=== PATIENT | female | born 1940 | race Caucasian/White ===

== ENCOUNTER 2018-12-20 12:30 | Emergency (ER) | payer OTHER ==
[2018-12-20 15:46] LABS: Absolute Lymphocytes (CBC) 2.1 K/uL (0.7-4.9); Absolute Monocytes 0.4 K/uL (0.1-1.3); Absolute Neutrophil 4.3 K/uL (1.8-8.0); Basophils % 0.6 % (0-1.3); Hematocrit 47.8 % (36.0-45.0); Lymphocytes % 29.9 % (15.3-44.8); MPV 8.5 fL (7.6-11.3); RBC Red Blood Cell Count 5.23 M/uL (3.86-4.86)
--- NOTE | 2018-12-20 15:52 | RAD REPORT ---
EXAM DESCRIPTION: RAD - Foot Right 3 View - 12/20/2018 3:42 pm CLINICAL HISTORY: Right foot pain FINDINGS: No fracture or dislocation is seen Osteoporosis. No bony destructive lesion noted
[2018-12-20 16:04] LABS: Potassium 4.2 mmol/L (3.5-5.1)
--- NOTE | 2018-12-20 16:17 | EDPHYS ---
Physician Documentation [facility] Name: Lisa Shannon Age: 78 yrs Sex: Female : 1940 Arrival Date: 12/20/2018 Time: 12:32 Bed 14 Private MD: ED Physician Denys Rizo HPI: 12/20 16:05 This 78 yrs old Female presents to ER via Ambulatory with complaints of Right pm1 Great Toe Pain. 16:05 The patient presents with pain. The complaints affect the right first toe. Context: The pm1 problem was sustained at home, resulted from an unknown cause, Mechanism of Injury: Unknown the patient can fully bear weight, the patient is able to ambulate. Onset: The symptoms/episode began/occurred 3 week(s) ago. Modifying factors: The symptoms are alleviated by antibiotic treatment by prior ER visit the symptoms are aggravated by nothing. Associated signs and symptoms: Pertinent negatives: calf tenderness, fever, numbness, tingling, vomiting. Severity of symptoms: in the emergency department the symptoms have improved, markedly. The patient has experienced similar episodes in the past, a few times. Supervisor Weaving 1 week ago and told that her right foot is fine. Patient presenting today with complaints of right great toe pain. She reports that her dog recently stepped on her foot and caused an abrasion. She presented to another ER about 3 weeks ago for the same complaint and discharge home with antibiotics. Followed up with implement mechanic after completion of antibiotics and told that her foot was fine and that she did not need any further antibiotics. Patient sees pain management . Historical: - Allergies: 12:52 No Known Allergies; tw2 - Home Meds: 12:52 Metoprolol Tartrate Oral [Active]; "some other heart medicine" [Active]; tw2 12:52 "acid reflex medicine" [Active]; tw2 - PMHx: 12:52 Hypertension; tw2 12:52 acid reflux; tw2 - Immunization history:: Adult Immunizations. - Social history:: Smoking status: Patient uses tobacco products, smokes one pack cigarettes per day. - Ebola Screening: : Patient denies travel to an Ebola-affected area in the 21 days before illness onset. ROS: 16:05 MS/extremity: Positive for pain, of the right first toe, Negative for decreased range pm1 of motion, deformity. 16:05 Constitutional: Negative for fever, chills, and weight loss, Eyes: Negative for injury, pain, redness, and discharge, ENT: Negative for injury, pain, and discharge, Neck: Negative for injury, pain, and swelling, Cardiovascular: Negative for chest pain, palpitations, and edema, Respiratory: Negative for shortness of breath, cough, wheezing, and pleuritic chest pain, Abdomen/GI: Negative for abdominal pain, nausea, vomiting, diarrhea, and constipation, Back: Negative for injury and pain, : Negative for injury, bleeding, discharge, and swelling, MS/Extremity: Negative for injury and deformity, Skin: Negative for injury, rash, and discoloration, Neuro: Negative for headache, weakness, numbness, tingling, and seizure. Exam: 16:05 Constitutional: This is a well developed, well nourished patient who is awake, alert, pm1 and in no acute distress. Head/Face: Normocephalic, atraumatic. Eyes: Pupils equal round and reactive to light, extra-ocular motions intact. Lids and lashes normal. Conjunctiva and sclera are non-icteric and not injected. Cornea within normal limits. Periorbital areas with no swelling, redness, or edema. ENT: Nares patent. No nasal discharge, no septal abnormalities noted. Tympanic membranes are normal and external auditory canals are clear. Oropharynx with no redness, swelling, or masses, exudates, or evidence of obstruction, uvula midline. Mucous membranes moist. Neck: Trachea midline, no thyromegaly or masses palpated, and no cervical lymphadenopathy. Supple, full range of motion without nuchal rigidity, or vertebral point tenderness. No Meningismus. Chest/axilla: Normal chest wall appearance and motion. Nontender with no deformity. No lesions are appreciated. Cardiovascular: Regular rate and rhythm with a normal S1 and S2. No gallops, murmurs, or rubs. Normal PMI, no JVD. No pulse deficits. Respiratory: Lungs have equal breath sounds bilaterally, clear to auscultation and percussion. No rales, rhonchi or wheezes noted. No increased work of breathing, no retractions or nasal flaring. Abdomen/GI: Soft, non-tender, with normal bowel sounds. No distension or tympany. No guarding or rebound. No evidence of tenderness throughout. Back: No spinal tenderness. No costovertebral tenderness. Full range of motion. 16:05 MS/ Extremity: Pulses equal, no cyanosis. Neurovascular intact. Full, normal range of motion. 16:05 Skin: Appearance: normal except for affected area, abscess, not appreciated, mild redness to plantar aspect of right great toe. 16:05 Neuro: Orientation: is normal, Motor: is normal, moves all fours. Vital Signs: 12:51 BP 117 / 63; Pulse 79; Resp 17; Temp 97.0(TE); Pulse Ox 95% on R/A; Weight 63.05 kg tw2 (R); Height 5 ft. 5 in. (165.10 cm); Pain 6/10; 12:51 Body Mass Index 23.13 (63.05 kg, 165.10 cm) tw2 MDM: 15:12 Patient medically screened. pm1 16:08 Data reviewed: vital signs. Data interpreted: Pulse oximetry: on room air is 97 %. pm1 Interpretation: normal. Counseling: I had a detailed discussion with the patient and/or guardian regarding: the historical points, exam findings, and any diagnostic results supporting the discharge/admit diagnosis, lab results, radiology results, the need for outpatient follow up, to return to the emergency department if symptoms worsen or persist or if there are any questions or concerns that arise at home. 12/20 15:21 Order name: CBC with Diff; Complete Time: 16:09 pm1 12/20 15:21 Order name: BMP; Complete Time: 16:09 pm1 12/20 15:21 Order name: Foot Right 3 View XRAY; Complete Time: 16:09 pm1 12/20 15:21 Order name: IV Saline Lock; Complete Time: 15:43 pm1 Administered Medications: 16:07 Not Given (pt driving ): morphine 2 mg IVP once ls4 16:08 Not Given (pt driving ): Zofran 4 mg IVP once; over 2 minutes ls4 Disposition: 12/21 09:09 Co-signature as Attending Physician, Denys Rizo MD I agree with the assessment and kdr plan of care. Disposition: 12/20/18 16:15 Discharged to Home. Impression: Cellulitis of right toe. - Condition is Stable. - Discharge Instructions: Cellulitis, Adult. - Prescriptions for Augmentin 875- 125 mg Oral Tablet - take 1 tablet by ORAL route every 12 hours for 10 days; 20 tablet. Bactrim DS 800- 160 mg Oral Tablet - take 1 tablet by ORAL route every 12 hours for 10 days; 20 tablet. - Medication Reconciliation Form, Thank You Letter, Antibiotic Education, Prescription Opioid Use form. - Follow up: Emergency Department; When: As needed; Reason: Worsening of condition. Follow up: Private Physician; When: 2 - 3 days; Reason: Recheck today's complaints, Continuance of care, Re-evaluation by your physician. - Problem is new. - Symptoms have improved. Signatures: Dispatcher [employer] EDMS Denys Rizo MD MD kdr Ritesh Thompson NP MECHANICAL ENGINEERING DIRECTOR pm1 Marni Mccoy RN RN tw2 Yoli Plascencia RN RN ls4 Corrections: (The following items were deleted from the chart) 12/20 16:48 16:15 12/20/2018 16:15 Discharged to Home. Impression: Cellulitis of right toe. ls4 Condition is Stable. Forms are Medication Reconciliation Form, Thank You Letter, Antibiotic Education, Prescription Opioid Use. Follow up: Emergency Department; When: As needed; Reason: Worsening of condition. Follow up: Private Physician; When: 2 - 3 days; Reason: Recheck today's complaints, Continuance of care, Re-evaluation by your physician. Problem is new. Symptoms have improved. pm1
--- NOTE | 2018-12-20 16:17 | ER ---
Nurse's Notes [facility] Name: Lisa Shannon Age: 78 yrs Sex: Female : 1940 Arrival Date: 12/20/2018 Time: 12:32 Bed 14 Private MD: Diagnosis: Cellulitis of right toe Presentation: 12/20 12:47 Presenting complaint: Patient states: i have had an infection in my right big toe and tw2 the redness was going up my leg and i went to the er in [place] and they sent me to dr. chacon in [place] and he sent me a referral to some dr in there clinic i really dont want to go to there doctors in [place], i want to see a doctor and see what they say, they talked about having to have my toe cut off, i am still taking antibiotics. Transition of care: patient was not received from another setting of care. Onset of symptoms was December 20, 2018. Risk Assessment: Do you want to hurt yourself or someone else? Patient reports no desire to harm self or others. Initial Sepsis Screen: Does the patient meet any 2 criteria? No. Patient's initial sepsis screen is negative. Does the patient have a suspected source of infection? Yes: Skin breakdown/wound. Care prior to arrival: None. 12:47 Method Of Arrival: Ambulatory tw2 12:47 Acuity: KALEY 3 tw2 Triage Assessment: 12:50 General: Appears in no apparent distress. Behavior is calm, cooperative, appropriate tw2 for age. Pain: Complains of pain in plantar aspect of right first toe, right first toe and Right first toenail. Derm: Wound noted plantar aspect of right first toe, right first toe and Right first toenail Other: redness and swelling noted to RIGHT great toe. Historical: - Allergies: 12:52 No Known Allergies; tw2 - Home Meds: 12:52 Metoprolol Tartrate Oral [Active]; "some other heart medicine" [Active]; tw2 12:52 "acid reflex medicine" [Active]; tw2 - PMHx: 12:52 Hypertension; tw2 12:52 acid reflux; tw2 - Immunization history:: Adult Immunizations. - Social history:: Smoking status: Patient uses tobacco products, smokes one pack cigarettes per day. - Ebola Screening: : Patient denies travel to an Ebola-affected area in the 21 days before illness onset. Screenin:14 Abuse screen: Denies threats or abuse. Denies injuries from another. Nutritional ls4 screening: No deficits noted. Tuberculosis screening: No symptoms or risk factors identified. Fall Risk No fall in past 12 months (0 pts). No secondary diagnosis (0 pts). No IV (0 pts). Ambulatory Aid- None/Bed Rest/Nurse Assist (0 pts). Gait- Normal/Bed Rest/Wheelchair (0 pts) Mental Status- Oriented to own ability (0 pts). Total Urena Fall Scale indicates No Risk (0-24 pts). Assessment: 15:15 General: Appears in no apparent distress. comfortable. Pain: Complains of pain in right ls4 foot and right first toe and plantar aspect of right first toe Pain currently is 6 out of 10 on a pain scale. Cardiovascular: Capillary refill < 3 seconds Patient's skin is warm and dry. Respiratory: Airway is patent Respiratory effort is even, unlabored, Respiratory pattern is regular. Musculoskeletal: Circulation, motion, and sensation intact. Capillary refill < 3 seconds, Range of motion: intact in all extremities. Vital Signs: 12:51 BP 117 / 63; Pulse 79; Resp 17; Temp 97.0(TE); Pulse Ox 95% on R/A; Weight 63.05 kg tw2 (R); Height 5 ft. 5 in. (165.10 cm); Pain 6/10; 12:51 Body Mass Index 23.13 (63.05 kg, 165.10 cm) tw2 ED Course: 12:32 Patient arrived in ED. rg4 12:50 Triage completed. tw2 12:51 Arm band placed on. tw2 15:04 Ritesh Thompson NP is PHCP. pm1 15:04 Denys Rizo MD is Attending Physician. pm1 15:11 Yoli Plascencia, CEDRIC is Primary Nurse. ls4 15:16 Patient has correct armband on for positive identification. Bed in low position. Call ls4 light in reach. Side rails up X 1. Pulse ox on. NIBP on. Verbal reassurance given. 15:16 No provider procedures requiring assistance completed. ls4 15:43 Foot Right 3 View XRAY In Process Unspecified. EDMS 15:43 Initial lab(s) drawn, by me, sent to lab. Inserted saline lock: 20 gauge in right ls4 forearm, using aseptic technique. Blood collected. Administered Medications: 16:07 Not Given (pt driving ): morphine 2 mg IVP once ls4 16:08 Not Given (pt driving ): Zofran 4 mg IVP once; over 2 minutes ls4 Outcome: 16:15 Discharge ordered by . pm1 16:48 Patient left the ED. ls4 Signatures: Dispatcher [employer] EDMS Ritesh Thompson NP ADJUNCT PHYSICAL EDUCATION INSTRUCTOR pm1 Marni Mccoy RN RN tw2 Myrtle Mcmanus rg4 Yoli Plascencia RN RN ls4
== END 2018-12-20 16:48 | disposition home or self-care (01) ==
LOC: ER 12:30
DX: L03.031 Cellulitis of right toe (principal); I10 Essential (primary) hypertension; F17.210 Nicotine dependence, cigarettes, uncomplicated
CPT/HCPCS: 36415; 80048; 85025; 99284

== ENCOUNTER 2020-01-06 11:15 | Emergency (ER) | payer OTHER ==
[2020-01-06 13:12] LABS: Urine Bacteria <20 /HPF (<20); Urine Culture Reflex Order NOT NEEDED; Urine RBC <5 /HPF (NONE SEEN)
[2020-01-06 13:22] LABS: Urine Blood NEGATIVE (NEG); Urine Glucose 2+ (NEG); Urine Protein NEGATIVE (NEG)
--- NOTE | 2020-01-06 13:48 | RAD REPORT ---
EXAM DESCRIPTION: RAD - Lumbar Spine 3 Views - 01/06/2020 1:26 pm CLINICAL HISTORY: Back pain FINDINGS: [id number] scoliosis involves the spine. Moderate spondylosis involves mid lumbar spine consisting disc space narrowing and osteophytes. Bones are osteoporotic. No fracture or dislocation. 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
--- NOTE | 2020-01-06 14:12 | EDPHYS ---
Physician Documentation [facility] Name: Lisa Shannon Age: 79 yrs Sex: Female : 1940 Arrival Date: 01/06/2020 Time: 11:16 Bed 20 Private MD: ED Physician Denys Rizo HPI: 01/05 14:18 This 79 yrs old Female presents to ER via Ambulatory with complaints of Back snw Pain. 14:18 The patient presents with pain that is chronic, with no known mechanism of injury. The snw symptoms are located in the low back. The pain does not radiate. Associated signs and symptoms: The patient has no apparent associated signs or symptoms. The problem was sustained from a chronic condition, degenerative joint disease. Severity of symptoms: At their worst the symptoms were moderate. It is unknown whether or not the patient has had similar symptoms in the past. It is unknown whether or not the patient has recently seen a physician. Historical: - Allergies: 11:34 No Known Allergies; ss - PMHx: 11:34 acid reflux; Hypertension; ss - Immunization history:: Adult Immunizations up to date. - Social history:: Smoking status: Patient reports the use of cigarette tobacco products, smokes two packs cigarettes per day. ROS: 14:17 Constitutional: Negative for fever, chills, and weight loss, Eyes: Negative for injury, snw pain, redness, and discharge, ENT: Negative for injury, pain, and discharge, Neck: Negative for injury, pain, and swelling, Cardiovascular: Negative for chest pain, palpitations, and edema, Respiratory: Negative for shortness of breath, cough, wheezing, and pleuritic chest pain, Abdomen/GI: Negative for abdominal pain, nausea, vomiting, diarrhea, and constipation, : Negative for injury, bleeding, discharge, and swelling, MS/Extremity: Negative for injury and deformity, Skin: Negative for injury, rash, and discoloration, Neuro: Negative for headache, weakness, numbness, tingling, and seizure, Psych: Negative for depression, anxiety, suicide ideation, homicidal ideation, and hallucinations. 14:17 Back: Positive for pain at rest, pain with movement, of the lumbar area, left low back and right low back. Exam: 14:13 Constitutional: This is a well developed, well nourished patient who is awake, alert, snw and in no acute distress. Head/Face: Normocephalic, atraumatic. Eyes: Pupils equal round and reactive to light, extra-ocular motions intact. Lids and lashes normal. Conjunctiva and sclera are non-icteric and not injected. Cornea within normal limits. Periorbital areas with no swelling, redness, or edema. ENT: Nares patent. No nasal discharge, no septal abnormalities noted. Tympanic membranes are normal and external auditory canals are clear. Oropharynx with no redness, swelling, or masses, exudates, or evidence of obstruction, uvula midline. Mucous membranes moist. Neck: Trachea midline, no thyromegaly or masses palpated, and no cervical lymphadenopathy. Supple, full range of motion without nuchal rigidity, or vertebral point tenderness. No Meningismus. Chest/axilla: Normal chest wall appearance and motion. Nontender with no deformity. No lesions are appreciated. Cardiovascular: Regular rate and rhythm with a normal S1 and S2. No gallops, murmurs, or rubs. Normal PMI, no JVD. No pulse deficits. Respiratory: Lungs have equal breath sounds bilaterally, clear to auscultation and percussion. No rales, rhonchi or wheezes noted. No increased work of breathing, no retractions or nasal flaring. Abdomen/GI: Soft, non-tender, with normal bowel sounds. No distension or tympany. No guarding or rebound. No evidence of tenderness throughout. Skin: Warm, dry with normal turgor. Normal color with no rashes, no lesions, and no evidence of cellulitis. MS/ Extremity: Pulses equal, no cyanosis. Neurovascular intact. Full, normal range of motion. Neuro: Awake and alert, GCS 15, oriented to person, place, time, and situation. Cranial nerves II-XII grossly intact. Motor strength 5/5 in all extremities. Sensory grossly intact. Cerebellar exam normal. Normal gait. Psych: Awake, alert, with orientation to person, place and time. Behavior, mood, and affect are within normal limits. 14:13 Back: pain, that is moderate, ROM is painful, scoliosis that is moderate, vertebral tenderness, is not appreciated. Vital Signs: 11:32 BP 92 / 57; Pulse 93; Resp 16; Temp 98.3(TE); Pulse Ox 97% on R/A; Weight 58.97 kg; ss Height 5 ft. 0 in. (152.40 cm); Pain 9/10; 12:33 BP 92 / 57; Pulse 93; Resp 16; Temp 98.3; Pulse Ox 97% ; Weight 58.97 kg; Height 5 ft. dh4 0 in. (152.40 cm); 12:50 BP 115 / 69; Pulse 81; Resp 16 S; Pulse Ox 99% on R/A; ca1 13:59 BP 116 / 80; Pulse 76; Resp 15 S; Pulse Ox 97% on R/A; ca1 12:33 Body Mass Index 25.39 (58.97 kg, 152.40 cm) dh4 MDM: 12:38 Patient medically screened. snw 14:15 Data reviewed: vital signs, nurses notes. Data interpreted: Pulse oximetry: on room air snw is 99 %. Interpretation: normal. Counseling: I had a detailed discussion with the patient and/or guardian regarding: the historical points, exam findings, and any diagnostic results supporting the discharge/admit diagnosis, lab results, the need for outpatient follow up, for definitive care, to return to the emergency department if symptoms worsen or persist or if there are any questions or concerns that arise at home. Special discussion: Based on the history and exam findings, there is no indication for further emergent testing or inpatient evaluation. I discussed with the patient/guardian the need to see the back specialist for further evaluation of the symptoms. I discussed with the patient/guardian the need to see the primary care provider for further evaluation of the symptoms. 01/05 12:41 Order name: Urine Culture snw 01/05 12:41 Order name: Urine Microscopic Only; Complete Time: 13:17 snw 01/05 12:41 Order name: Lumbar Spine (3 Views) XRAY; Complete Time: 13:59 snw 01/05 12:52 Order name: Urine Dipstick--Ancillary (enter results); Complete Time: 13:24 em1 01/05 12:41 Order name: Urine Dipstick-Ancillary (obtain specimen); Complete Time: 12:49 snw Administered Medications: 14:09 Not Given (unavailable at pharmacy): TORadol 10 mg PO once ca1 14:14 Drug: TORadol - Ketorolac 15 mg Route: IM; Site: left deltoid; ca1 Disposition: 15:24 Co-signature as Attending Physician, Denys Rizo MD I agree with the assessment and kdr plan of care. Disposition: 01/06/20 14:11 Discharged to Home. Impression: Low back pain. - Condition is Stable. - Discharge Instructions: Back Pain, Adult, Musculoskeletal Pain, Back Injury Prevention, [id number], Cryotherapy, Heat Therapy. - Prescriptions for orphenadrine citrate 100 mg Oral Tablet Sustained Release - take 1 tablet by ORAL route 2 times per day As needed; 20 tablet. - Medication Reconciliation Form, Thank You Letter, Antibiotic Education, Prescription Opioid Use form. - Follow up: Emergency Department; When: As needed; Reason: Worsening of condition. Follow up: Private Physician; When: 2 - 3 days; Reason: Recheck today's complaints, Continuance of care, Re-evaluation by your physician. Signatures: Dispatcher [employer] EDAZ Denys Rizo MD MD [facility] Lucille Alexandre, FOWL BLOOD TESTER-C FOWL BLOOD TESTER-Csnw Shayla Walker RN RN ss Awilda Gonzáles RN RN ca1 Corrections: (The following items were deleted from the chart) 14:20 14:11 01/06/2020 14:11 Discharged to Home. Impression: Low back pain. Condition is ca1 Stable. Forms are Medication Reconciliation Form, Thank You Letter, Antibiotic Education, Prescription Opioid Use. Follow up: Emergency Department; When: As needed; Reason: Worsening of condition. Follow up: Private Physician; When: 2 - 3 days; Reason: Recheck today's complaints, Continuance of care, Re-evaluation by your physician. snw
--- NOTE | 2020-01-06 14:12 | ER ---
Nurse's Notes [facility] Name: Lisa Shannon Age: 79 yrs Sex: Female : 1940 Arrival Date: 01/06/2020 Time: 11:16 Bed 20 Private MD: Diagnosis: Low back pain Presentation: 01/05 11:32 Chief complaint: Patient states: lower back pain x 4-6 weeks. Pt reports she fell a few ss weeks ago but her back was hurting prior to that injury. Coronavirus screen: Proceed with normal triage. Patient denies a cough. Patient denies shortness of breath or difficulty breathing. Patient denies measured and/or subjective temperature greater than 100.4F prior to today's visit. Patient denies travel on a cruise ship or to a country the [facility] currently lists as an affected area. Patient denies contact with known and/or suspected case of COVID-19. Ebola Screen: Patient denies exposure to infectious person. Patient denies travel to an Ebola-affected area in the 21 days before illness onset. Initial Sepsis Screen: Does the patient meet any 2 criteria? No. Patient's initial sepsis screen is negative. Does the patient have a suspected source of infection? No. Patient's initial sepsis screen is negative. Risk Assessment: Do you want to hurt yourself or someone else? Patient reports no desire to harm self or others. Onset of symptoms is unknown. 11:32 Method Of Arrival: Ambulatory ss 11:32 Acuity: KALEY 4 ss Historical: - Allergies: 11:34 No Known Allergies; ss - PMHx: 11:34 acid reflux; Hypertension; ss - Immunization history:: Adult Immunizations up to date. - Social history:: Smoking status: Patient reports the use of cigarette tobacco products, smokes two packs cigarettes per day. Screenin:25 Abuse screen: Denies threats or abuse. Denies injuries from another. Nutritional ca1 screening: No deficits noted. Tuberculosis screening: No symptoms or risk factors identified. Fall Risk None identified. Assessment: 12:25 General: Appears in no apparent distress. uncomfortable, Behavior is calm, cooperative, ca1 appropriate for age. Pain: Complains of pain in right lower back Pain does not radiate. Pain currently is 5 out of 10 on a pain scale. Pain began 6 weeks Is continuous, Aggravated by repositioning. Neuro: Level of Consciousness is awake, alert, obeys commands, Oriented to person, place, time, situation. Cardiovascular: Heart tones S1 S2 present Capillary refill < 3 seconds Patient's skin is warm and dry. Respiratory: Airway is patent Respiratory effort is even, unlabored, Respiratory pattern is regular, symmetrical, Breath sounds are clear bilaterally. GI: Abdomen is flat, non-distended, Bowel sounds present X 4 quads. Abd is soft and non tender X 4 quads. : No signs and/or symptoms were reported regarding the genitourinary system. EENT: No signs and/or symptoms were reported regarding the EENT system. Derm: Skin is intact, is healthy with good turgor, Skin is pink, warm \T\ dry. Musculoskeletal: Circulation, motion, and sensation intact. Capillary refill < 3 seconds. 13:30 Reassessment: Patient appears in no apparent distress at this time. No changes from ca1 previously documented assessment. Patient and/or family updated on plan of care and expected duration. Pain level reassessed. Patient is alert, oriented x 3, equal unlabored respirations, skin warm/dry/pink. 14:19 Reassessment: Patient appears in no apparent distress at this time. Patient is alert, ca1 oriented x 3, equal unlabored respirations, skin warm/dry/pink. Vital Signs: 11:32 BP 92 / 57; Pulse 93; Resp 16; Temp 98.3(TE); Pulse Ox 97% on R/A; Weight 58.97 kg; ss Height 5 ft. 0 in. (152.40 cm); Pain 9/10; 12:33 BP 92 / 57; Pulse 93; Resp 16; Temp 98.3; Pulse Ox 97% ; Weight 58.97 kg; Height 5 ft. dh4 0 in. (152.40 cm); 12:50 BP 115 / 69; Pulse 81; Resp 16 S; Pulse Ox 99% on R/A; ca1 13:59 BP 116 / 80; Pulse 76; Resp 15 S; Pulse Ox 97% on R/A; ca1 12:33 Body Mass Index 25.39 (58.97 kg, 152.40 cm) dh4 ED Course: 11:16 Patient arrived in ED. as 11:34 Triage completed. ss 11:34 Arm band placed on left wrist. ss 12:25 Lucille Alexandre FNP-C [facility]. snw 12:25 Denys Rizo MD is Attending Physician. snw 12:25 Awilda Gonzáles, RN is Primary Nurse. ca1 12:25 Patient has correct armband on for positive identification. Bed in low position. Call ca1 light in reach. Side rails up X 1. Pulse ox on. NIBP on. Warm blanket given. 12:49 Urine collected: clean catch specimen, clear. ca1 13:20 Lumbar Spine (3 Views) XRAY In Process Unspecified. EDMS 14:20 No provider procedures requiring assistance completed. Patient did not have IV access ca1 during this emergency room visit. Administered Medications: 14:09 Not Given (unavailable at pharmacy): TORadol 10 mg PO once ca1 14:14 Drug: TORadol - Ketorolac 15 mg Route: IM; Site: left deltoid; ca1 Outcome: 14:11 Discharge ordered by . snw 14:20 Discharged to home ambulatory. ca1 14:20 Condition: stable 14:20 Discharge instructions given to patient, Instructed on discharge instructions, follow up and referral plans. medication usage, Demonstrated understanding of instructions, follow-up care, medications, Prescriptions given X 1. 14:20 Patient left the ED. ca1 Signatures: Dispatcher [employer] EDAR Lucille Alexandre FNP-C ANIMAL NUTRITION TEACHER-Csn Carolyn Barney Shelby, RN RN Awilda Gonzáles RN RN [facility] Dagoberto Limon 4 Corrections: (The following items were deleted from the chart) 12:51 12:50 BP 155 / 69; Pulse 81bpm; Resp 16bpm; Spontaneous; Pulse Ox 99% RA; ca1 ca1
[2020-01-06] MEDS ORDERED: KETOROLAC 30 MG/ML INJ ONE (14:18)
[2020-01-06 14:27] VITALS: TEMP 98.3
[2020-01-06 14:31] VITALS: BP 116/80; O2SAT 97
--- OUTSIDE RECORDS SUMMARY | 2020-01-06 15:00 | XMS REPORT | Continuity of Care Document ---
:1940 Author Organization [facility] t Address [address] [place] [address] Care Team Providers Name Role Phone Samira HERRERA, S Attending Clinician Juan David HERRERA Attending Clinician Rosana HERRERA A Attending Clinician Problems This patient has no known problems. Allergies, Adverse Reactions, Alerts This patient has no known allergies or adverse reactions. Medications This patient has no known medications. Procedures This patient has no known procedures. Encounters Start End Encounter Admission Attending Care Care Encounter Source Date/Time Date/Time Type Type Clinicians Facility Department ID 2020-01-06 2020-01-06 Emergency [facility] [id number] 04:15:20 05:12:00 Gil Armenta [id number] [place] [id number] [place] [id number] 2019-11-25 2019-11-25 Telephone Juan David [facility] [id number] 00:00:00 00:00:00 Eric Armenta [id number] [place] [id number] [facility] [phone] [address] 2019-11-22 2019-11-22 Telephone Juan David [facility] [id number] 00:00:00 00:00:00 Eric Armenta [id number] [place] [id number] [facility] [phone] [place] 044 [facility] 2019-11-13 2019-11-[address] [facility] [id number] 00:00:00 00:00:00 Eric Mishra [id number] [place] [id number] Professio [phone] [place] [address] [address] [facility] 2019-10-22 2019-10-22 [facility] [id number] 00:00:00 00:00:00 Malika Armenta [id number] [place] [id number] Professio [phone] [facility] 231 [facility] 2019-10-02 2019-10-02 Pre Visit [facility] [id number] 00:00:00 00:00:00 Outreach Eric Armenta [id number] [place] [id number] Profess[facility] [phone] [address] 2019-10-01 2019-10-01 Office [facility] [id number] 10:34:26 16:09:30 Visit Eric Armenta [id number] [place] [id number] [facility] [phone] [address] Results This patient has no known results.
--- OUTSIDE RECORDS SUMMARY | 2020-01-06 15:01 | XMS REPORT | Summary of Care ---
:1940 Author Organization [facility] Address [address] [place] [id number] Care Team Providers Name Role Phone MD Juan David Primary Care Provider Reason for Visit Reason Comments Refill Request Encounter Details Date Type Department Care Team Description 10/22/2019 Refill [facility] Pediatric and Hina Wayne, Refill Request Adult Primary Care- MD Armenta [address] [place] [address] [address] [facility], [address] [place] [address] [place] [address] [phone] Allergies No Known Allergiesdocumented as of this encounter (statuses as of 10/24/2019) Medications Medication Sig Dispensed Refills Start Date End Date Status proMETHazine Take 1 Tab by 20 Tab 0 03/31/2015 Ac tive (PHENERGAN) 12.5 mg mouth every 6 tabletIndications: (six) hours as Nausea needed for Nausea and Vomiting (N/V). acetaminophen-codeine Take 1 Tab by 20 Tab 0 03/31/2015 Active (TYLENOL-CODEINE #3) mouth every 4 300-30 mg tablet (four) hours as needed for Pain (scale 4-6). esomeprazole (NEXIUM) Take 1 Cap by 30 Cap 4 06/01/2015 Active 40 mg mouth daily capsuleIndications: with Gastroesophageal breakfast. reflux disease without esophagitis Liraglutide (VICTOZA inject 0.2 mL 1 Syringe 3 10/18/2016 Active 2-GÓMEZ) 0.6 mg/0.1 mL under the skin (18 mg/3 mL) daily. injectionIndications: Type 2 diabetes, uncontrolled, with neuropathy Diclofenac Sodium 1 % APPLY SMALL 5 11/15/2018 Active gel AMOUNT TWICE DAILY HYDROcodone-acetamino Take 1 tablet 0 01/17/2019 Active phen 5-325 mg tablet by mouth 3 (three) times daily. zolpidem (AMBIEN) 5 Take 1 tablet 30 tablet 5 01/25/2019 Active mg tabletIndications: by mouth at Other chronic pain bedtime as needed for Insomnia. ibuprofen 800 mg Take 1 tablet 21 tablet 0 08/31/2019 Active tabletIndications: by mouth every Acute viral syndrome 8 (eight) hours as needed for Pain (scale 4-6). ondansetron (ZOFRAN) Take 1 tablet 12 tablet 0 08/31/2019 Active 4 mg by mouth every tabletIndications: 8 (eight) Acute viral syndrome hours as needed for Nausea and Vomiting (N/V). metoprolol tartrate Take 1 tablet 90 tablet 3 10/01/2019 Active 100 mg by mouth tabletIndications: daily. Essential hypertension, Chronic congestive heart failure, unspecified heart failure type isosorbide dinitrate Take 1 tablet 90 tablet 3 10/01/2019 Active 10 mg by mouth tabletIndications: daily. Essential hypertension, Chronic congestive heart failure, unspecified heart failure type Insulin [place], Use as 450 Each 1 10/01/2019 Ac tive Disposable, (PEN directed 5 x NEEDLE) 31 gauge x daily DX: 12/13" E11.9 NdleIndications: Type 2 diabetes, uncontrolled, with neuropathy metformin ER 500 mg Take 1 tablet 60 tablet 3 10/01/2019 Active 24 hr by mouth 2 tabletIndications: (two) times Type 2 diabetes, daily. uncontrolled, with neuropathy Insulin Lispro, inject 20 18 mL 11 10/01/2019 Act [place] [facility], (HUMALOG U-100 Units under INSULIN) 100 unit/mL the skin 3 cartridgeIndications: (three) times Type 2 diabetes, daily before uncontrolled, with meals. neuropathy Insulin Glargine inject 10-15 3 Syringe 1 10/01/2019 Active (LANTUS SOLOSTAR Units under U-100 INSULIN) 100 the skin every unit/mL (3 mL) morning. injectionIndications: Type 2 diabetes, uncontrolled, with neuropathy atorvastatin 40 mg Take 1 tablet 30 tablet 3 10/01/2019 Active tabletIndications: by mouth at Dyslipidemia bedtime. mupirocin 2 % Apply to 22 g 1 10/01/2019 Activ e ointmentIndications: area(s) 3 Skin lesions (three) times daily. furosemide 20 mg Take 1 tablet 90 tablet 3 10/01/2019 Active tabletIndications: by mouth every Essential morning. hypertension, Chronic congestive heart failure, unspecified heart failure type potassium chloride 10 Take 1 tablet 60 tablet 1 10/02/2019 Active mEq CR by mouth every tabletIndications: Monday, Essential Monday and hypertension, Chronic Monday. congestive heart failure, unspecified heart failure type docusate 100 mg Take 1 capsule 60 capsule 2 10/01/2019 Active capsuleIndications: by mouth 2 Chronic constipation (two) times daily as needed for Constipation. GABAPENTIN 600 mg TAKE 1 TABLET 90 tablet 0 10/24/2019 Active tabletIndications: BY MOUTH THREE Type 2 diabetes, TIMES DAILY uncontrolled, with neuropathy gabapentin 600 mg Take 1 tablet 90 tablet 0 09/17/2019 0 Discontinued tabletIndications: by mouth 3 20 Type 2 diabetes, (three) times uncontrolled, with daily. neuropathy documented as of this encounter (statuses as of 10/24/2019) Active Problems Patient Care Coordination Note Diabetes Plan of Care My Diabetes Goals are the following: ? A1c (Measure of average glucose over t he 3 months) less than 7.0 ? Blood pressure- less than 130/80 ? Cholesterol- LDL ( bad cholesterol )- less than 100 (If I have heart disease less than 70) ? Home Glucose value goals o Before Breakfast- 80 to 126 o 2 hours after meals- 120-160 My Diabetes Care Plan includes the follo wing: ? Check and record my blood glucose at [facility] once a day, alternating between checking before breakfast and checking 2 hours after my largest meal ? Check and record blood pressure at [facility] once a week ? Exercise at least 30 minutes a day 5 d ays a week. This can be in three 10 minute intervals ? Continue to adhere to my diabetic diet (if you have questions about this, ask) ? Contact the office if: o Glucose values are not in the goal ran ge three times in one week o I have feelings my glucose is too low (feeling very faint, dizzy, or fuzzy headed or feeling very jittery, sweaty and hungry) and/or my glucose values are under 60 more than twice a week o I am so sick that I cannot eat properl y, to find out whether I need to adjust my medicines My blood pressure is over my goal more t bhardwaj three timesHypertension (High Blood Pressure) Plan of Care My Hypertension Goals are the following: ? Strive for a normal blood pressure of less than 140/90 ? Cholesterol- LDL ( Bad cholesterol )- less than 130 (if I have diabetes and heart disease goal is less than 70) ? Total Cholesterol- less than 200 ? Lose weight if overweight or obese and follow the Weight Loss Care Plan ? Stop smoking and avoid second hand smo ke My Hypertension Care Plan includes the f linning: ? Check and record blood pressure at [facility] once a week and write results on blood pressure log ? Exercise at least 30 minutes a day 5 d ays a week. This can be in three 10 minute intervals ? Maintain a healthy weight ? Follow a DASH diet (Dietary Approaches to Stop Hypertension) o Eat a diet rich in fruits, vegetables, and low fat dairy products and low in saturated and total fat o Reduce dietary sodium to below 1500mg per day o Limit alcohol to two drinks per day fo r most men and one drink per day for most women and senior contract specialist weight men ? If I am a smoker, stop smoking ? Manage stress by identifying three way s to reduce stress ? [employer] (www.[facility]/[employer]) is an online tool that will allow me to review lab results and portions of my health record, and to communicate with healthcare providers as needed. If I do not have a [employer] account, I will discuss this wi th my healthcare team Problem Noted Date Dyslipidemia 10/01/2019 Skin lesions 10/01/2019 Acute pulmonary edema 10/01/2019 Overview: -MILD Chronic congestive heart failure, unspecified heart fa ilure type 10/01/2019 Tobacco dependence 10/01/2019 Need for vaccination with 13-polyvalent pneumococcal c onjugate vaccine 10/01/2019 Need for influenza vaccination 10/01/2019 Medicare annual wellness visit, subsequent 10/01/2019 Chronic constipation 10/01/2019 Rheumatoid arthritis involving multiple sites 10/01/19 20 Generalized OA 10/01/2019 Other chronic pain 01/25/2019 Essential hypertension 02/18/2015 HLD (hyperlipidemia) 02/18/2015 Metabolic syndrome X 02/18/2015 Syncope and collapse 11/03/2014 Overview: Sitting car - trying to start Went to Er blood > 700 RLS (restless legs syndrome) 11/03/2014 AMI (acute myocardial infarction) 11/03/2014 Overview: Open heart surg 1997 Smoker 11/03/2014 Type 2 diabetes, uncontrolled, with neuropathy 015 documented as of this encounter (statuses as of 10/24/2019) Resolved Problems Problem Noted Date Resolved Date Cellulitis of toe of right foot 10/01/2019 10/01/19 20 HTN (hypertension) 11/03/2014 10/01/2019 documented as of this encounter (statuses as of 10/24/2019) Immunizations Name Administration Dates Next Due Influenza High Dose 10/01/2019 Pneumococcal 13 Conjugate, PCV13 (Prevnar 13) 10/01/2019 Pneumococcal Polysaccharide, PPSV23 (PNEUMOVAX) 03/31/2000 documented as of this encounter Social History Tobacco Use Types Packs/Day Years Used Date Current Every Day Smoker Cigarettes 0.5 60 Smokeless Tobacco: Never Used Comments: about 1 to 1/2 pack a day Alcohol Use Drinks/Week oz/Week Comments No Sex Assigned at Date Recorded Not on file Job Start Date Occupation Industry Not on file Not on file Not on file Travel History Travel Start Travel End No recent travel history available. documented as of this encounter Last Filed Vital Signs Not on filedocumented in this encounter Plan of Treatment Health Maintenance Due Date Last Done Comments EYE EXAM 1948 DTaP,Tdap,and Td Vaccines (1 - 1949 Tdap) FOOT EXAM 1956 Zoster Recombinant Vaccine 1988 (SHINGRIX) (1 of 2) Medicare Wellness Visit 2003 Osteoporosis Screening 2003 HgA1C 04/02/2020 10/01/2019, 10/18/2016, 12/16/2015, Additional history exists CREATININE (SERUM) 09/09/2020 09/09/2019, 08/31/2019, 12/04/2018, Additional history exists LDL-C 09/30/2020 10/01/2019, 12/16/2015, 02/10/2015, Additional history exists PNEUMOCOCCAL VACCINES 65+ (2 of 2 09/30/2020 10/01/2019, - PPSV23) URINE MICROALBUMIN 09/30/2020 10/01/2019, 02/10/2015, 04/15/2006 INFLUENZA VACCINE Completed 10/01/2019 documented as of this encounter Results Not on filedocumented in this encounter Visit Diagnoses Diagnosis Type 2 diabetes, uncontrolled, with neur opathy Type II or unspecified type diabetes angelica litus with neurological manifestations, uncontrolled documented in this encounter Insurance Payer Benefit Plan / Subscriber ID Effective Dates Phone Addre ss Type Group MEDICARE MEDICARE PART xxxxxxxxxxx 1996-[place] [phone] Medicare A & B [id number] [place] [id number] documented as of this encounter
--- OUTSIDE RECORDS SUMMARY | 2020-01-06 15:01 | XMS REPORT | Summary of Care ---
:1940 Author Organization [facility] Address [address] [place] [address] Care Team Providers Name Role Phone MD Juan David Primary Care Provider Reason for Visit Reason Comments Refill Request Rx Concern/Question Encounter Details Date Type Department Care Team Description 11/13/2019 Refill [facility] Family German Fall MD Refill Request; Rx Medicine - [place] [address] [facility] [address] Concern/Question [address] [facility] [address] [place] [address] [address] [place] [address] [phone] Allergies No Known Allergiesdocumented as of this encounter (statuses as of 11/17/2019) Medications Medication Sig Dispensed Refills Start End Date Status Date proMETHazine Take 1 Tab by 20 Tab 0 Act cam[place] (PHENERGAN) 12.5 mg mouth every 6 5 tabletIndications: (six) hours Nausea as needed for Nausea and Vomiting (N/V). acetaminophen-codein Take 1 Tab by 20 Tab 0 Active e (TYLENOL-CODEINE mouth every 4 5 #3) 300-30 mg tablet (four) hours as needed for Pain (scale 4-6). Liraglutide (VICTOZA inject 0.2 mL 1 Syringe 3 Active 2-GÓMEZ) 0.6 mg/0.1 mL under the 7 (18 mg/3 mL) skin daily. injectionIndications : Type 2 diabetes, uncontrolled, with neuropathy Diclofenac Sodium 1 APPLY SMALL 5 Active % gel AMOUNT TWICE 9 DAILY HYDROcodone-acetamin Take 1 tablet 0 Active ophen 5-325 mg by mouth 3 9 tablet (three) times daily. zolpidem (AMBIEN) 5 Take 1 tablet 30 tablet 5 Active mg by mouth at 9 tabletIndications: bedtime as Other chronic pain needed for Insomnia. ibuprofen 800 mg Take 1 tablet 21 tablet 0 Active tabletIndications: by mouth 0 Acute viral syndrome every 8 (eight) hours as needed for Pain (scale 4-6). ondansetron (ZOFRAN) Take 1 tablet 12 tablet 0 Active 4 mg by mouth 0 tabletIndications: every 8 Acute viral syndrome (eight) hours as needed for Nausea and Vomiting (N/V). metoprolol tartrate Take 1 tablet 90 tablet 3 Active 100 mg by mouth 0 tabletIndications: daily. Essential hypertension, Chronic congestive heart failure, unspecified heart failure type isosorbide dinitrate Take 1 tablet 90 tablet 3 Active 10 mg by mouth 0 tabletIndications: daily. Essential hypertension, Chronic congestive heart failure, unspecified heart failure type Insulin [place], Use as 450 Each 1 Act [place] Disposable, (PEN directed 5 x 0 NEEDLE) 31 gauge x daily DX: 12/13" E11.9 NdleIndications: Type 2 diabetes, uncontrolled, with neuropathy metformin ER 500 mg Take 1 tablet 60 tablet 3 Active 24 hr by mouth 2 0 tabletIndications: (two) times Type 2 diabetes, daily. uncontrolled, with neuropathy Insulin Lispro, inject 20 18 mL 11 Acti ve Human, (HUMALOG Units under 0 U-100 INSULIN) 100 the skin 3 unit/mL (three) times cartridgeIndications daily before : Type 2 diabetes, meals. uncontrolled, with neuropathy Insulin Glargine inject 10-15 3 Syringe 1 Active (LANTUS SOLOSTAR Units under 0 U-100 INSULIN) 100 the skin unit/mL (3 mL) every injectionIndications morning. : Type 2 diabetes, uncontrolled, with neuropathy atorvastatin 40 mg Take 1 tablet 30 tablet 3 Active tabletIndications: by mouth at 0 Dyslipidemia bedtime. mupirocin 2 % Apply to 22 g 1 Active ointmentIndications: area(s) 3 0 Skin lesions (three) times daily. furosemide 20 mg Take 1 tablet 90 tablet 3 Active tabletIndications: by mouth 0 Essential every hypertension, morning. Chronic congestive heart failure, unspecified heart failure type potassium chloride Take 1 tablet 60 tablet 1 Active 10 mEq CR by mouth 0 tabletIndications: every Monday, Essential Monday and hypertension, Monday. Chronic congestive heart failure, unspecified heart failure type docusate 100 mg Take 1 60 capsule 2 Act cam[place] capsuleIndications: capsule by 0 Chronic constipation mouth 2 (two) times daily as needed for Constipation. esomeprazole Take 1 30 capsule 4 Active (NEXIUM) 40 mg capsule by 0 capsuleIndications: mouth daily Gastroesophageal with reflux disease breakfast. without esophagitis gabapentin 600 mg TAKE 1 TABLET 90 tablet 0 Active tabletIndications: BY MOUTH 0 Type 2 diabetes, THREE TIMES uncontrolled, with DAILY neuropathy esomeprazole Take 1 Cap by 30 Cap 4 11/17/19 Dis continued (NEXIUM) 40 mg mouth daily 5 20 (Re order) capsuleIndications: with Gastroesophageal breakfast. reflux disease without esophagitis GABAPENTIN 600 mg TAKE 1 TABLET 90 tablet 0 11/13/19 Discontinued tabletIndications: BY MOUTH 0 20 ( Reorder) Type 2 diabetes, THREE TIMES uncontrolled, with DAILY neuropathy documented as of this encounter (statuses as of 11/17/2019) Active Problems Patient Care Coordination Note Diabetes [...] Check and record my blood glucose at [facility] once a day, alternating between checking before breakfast and checking 2 hours after my largest meal ? Check and record blood pressure at [facility] once a week ? Exercise at least [...] My Hypertension Care Plan includes the f anderson: ? 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 If I am a smoker, stop smoking ? Manage stress by identifying three way s to reduce stress ? [employer] ([email or web address]/[place]) is an online tool that will allow me to review lab results and portions of my health record, and to communicate with healthcare providers as needed. If I do not have a [employer] account, I will discuss this wi th [...] 10/01/2019 Rheumatoid arthritis involving multiple sites 10/01/19 Generalized OA 10/01/2019 Other chronic pain 01/25/2019 [...] as of this encounter (statuses as of 11/17/2019) Resolved Problems Problem Noted Date Resolved Date Cellulitis of toe of right foot 10/01/2019 10/01/19 20 HTN (hypertension) 11/03/2014 10/01/2019 documented as of this encounter (statuses as of 11/17/2019) Immunizations Name Administration Dates Next Due Influenza [...] filedocumented in this encounter Visit Diagnoses Diagnosis Gastroesophageal reflux disease without esophagitis Esophageal reflux Type 2 diabetes, uncontrolled, with neur opathy Type II or unspecified type diabetes angelica litus with neurological manifestations, uncontrolled documented in this encounter Insurance Payer Benefit Plan / Subscriber ID Effective Dates Phone Addre ss Type Group MEDICARE MEDICARE PART xxxxxxxxxxx 1996-[place] [phone] Medicare A & B 2 [id number] [place] [id number] documented as of this encounter
--- OUTSIDE RECORDS SUMMARY | 2020-01-06 15:02 | XMS REPORT | Summary of Care ---
:1940 Author Organization [facility] Address [address] [place] [address] Care Team Providers Name Role Phone MD Juan David Primary Care Provider Reason for Visit Reason Comments Rx Concern/Question Encounter Details Date Type Department Care Team Description 11/22/2019 Telephone [facility] Pediatric Eric Fall MD Rx Concern/Question and Adult Primary Care- [address] [place] [address]riber[address] [facility] [place] [address] [address] [place] [address] [phone] Allergies No Known Allergiesdocumented as of this encounter (statuses as of 11/22/2019) Medications Medication Sig Dispensed Refills Start Date [...] 5 11/15/2018 Active gel AMOUNT TWICE DAILY HYDROcodone-acetaminoph Take 1 tablet by 0 9 Active en 5-325 mg tablet mouth 3 (three) times daily. zolpidem (AMBIEN) 5 mg Take 1 tablet by 30 tablet 5 01/25/2019 Active tabletIndications: mouth at bedtime Other chronic pain as needed for Insomnia. ibuprofen 800 mg Take 1 tablet by 21 tablet 0 08/31/2019 Active tabletIndications: mouth every 8 Acute viral syndrome (eight) hours as needed for Pain (scale 4-6). ondansetron (ZOFRAN) 4 Take 1 tablet by 12 tablet 0 08/31/2019 Active mg tabletIndications: mouth every 8 Acute viral syndrome (eight) hours as needed for Nausea and Vomiting (N/V). metoprolol tartrate 100 Take 1 tablet by 90 tablet 3 0 Active mg tabletIndications: mouth daily. Essential hypertension, Chronic congestive heart failure, unspecified heart failure type isosorbide dinitrate 10 Take 1 tablet by 90 tablet 3 0 Active mg tabletIndications: mouth daily. Essential hypertension, Chronic congestive heart failure, unspecified heart failure type Insulin [place], Use as directed 450 Each 1 10/01/2019 Active Disposable, (PEN 5 x daily DX: NEEDLE) 31 gauge x E11.9 12/13" NdleIndications: Type 2 diabetes, uncontrolled, with neuropathy metformin ER 500 mg 24 Take 1 tablet by 60 tablet 3 10/01/2019 Active hr tabletIndications: mouth 2 (two) Type 2 diabetes, times daily. uncontrolled, with neuropathy Insulin Lispro, Human, inject 20 Units 18 mL 11 10/01/2019 Active (HUMALOG U-100 INSULIN) under the skin 3 100 unit/mL (three) times cartridgeIndications: daily before Type 2 diabetes, meals. uncontrolled, with neuropathy Insulin Glargine inject 10-15 3 Syringe 1 10/01/2019 Active (LANTUS SOLOSTAR U-100 Units under the INSULIN) 100 unit/mL (3 skin every mL) morning. injectionIndications: Type 2 diabetes, uncontrolled, with neuropathy atorvastatin 40 mg Take 1 tablet by 30 tablet 3 10/01/2019 Active tabletIndications: mouth at Dyslipidemia bedtime. mupirocin 2 % Apply to 22 g 1 10/01/2019 Activ e ointmentIndications: area(s) 3 Skin lesions (three) times daily. furosemide 20 mg Take 1 tablet by 90 tablet 3 10/01/2019 Active tabletIndications: mouth every Essential hypertension, morning. Chronic congestive heart failure, unspecified heart failure type potassium chloride 10 Take 1 tablet by 60 tablet 1 10/02/2019 Active mEq CR mouth every tabletIndications: Monday, Essential hypertension, Monday and Chronic congestive Monday. heart failure, unspecified heart failure type docusate 100 mg Take 1 capsule 60 capsule 2 10/01/2019 Active capsuleIndications: by mouth 2 (two) Chronic constipation times daily as needed for Constipation. esomeprazole (NEXIUM) Take 1 capsule 30 capsule 4 11/17/2019 Active 40 mg by mouth daily capsuleIndications: with breakfast. Gastroesophageal reflux disease without esophagitis gabapentin 600 mg TAKE 1 TABLET BY 90 tablet 0 11/17/2019 Active tabletIndications: Type MOUTH THREE 2 diabetes, TIMES DAILY uncontrolled, with neuropathy documented as of this encounter (statuses as of 11/22/2019) Active Problems Patient Care Coordination Note Diabetes [...] Check and record my blood glucose at [facility] once a day, alternating between checking before breakfast and checking 2 hours after my largest meal ? Check and record blood pressure at [facility] once a week ? Exercise at least [...] ke My Hypertension Care Plan includes the petty barron: ? Check and record blood pressure at [...] drink per day for most women and clerk cashier weight men ? If I am a smoker, stop smoking ? Manage stress by identifying three way s to reduce stress ? [employer] (www.[email or web address]/[employer]) is an online tool that will allow me to review lab results and portions of my health record, and to communicate with healthcare providers as needed. If I do not have a [employer] account, I will discuss this wi th [...] as of this encounter (statuses as of 11/22/2019) Resolved Problems Problem Noted Date Resolved Date Cellulitis of toe of right foot 10/01/2019 10/01/19 20 HTN (hypertension) 11/03/2014 10/01/2019 documented as of this encounter (statuses as of 11/22/2019) Immunizations Name Administration Dates Next Due Influenza [...] Results Not on filedocumented in this encounter Insurance Payer Benefit Plan / Subscriber ID Effective Dates Phone Addre ss Type Group MEDICARE MEDICARE PART xxxxxxxxxxx 1996-[place] [phone] Medicare A & B [place] 2 [id number] [place] [id number] documented as of this encounter
--- OUTSIDE RECORDS SUMMARY | 2020-01-06 15:03 | XMS REPORT | Summary of Care ---
:1940 Author Organization [facility] Address [address] [place] [address] Care Team Providers Name Role Phone MD Juan David Primary Care Provider Reason for Visit Reason Comments Authorization Esomeprazole Magnesium 40 de nial Encounter Details Date Type Department Care Team Description 11/25/2019 Telephone [facility] Pediatric Eric Fall A [facility] and Adult Primary MD (Esomeprazole Magnesium Care- [address] Tineo denial) [address] [place] [address] , [facility] [address] [place] [address] [place], [place] [phone] [address] [phone] Allergies No Known Allergiesdocumented as of this encounter (statuses as of 11/28/2019) Medications Medication Sig Dispensed Refills Start Date [...] heart failure, unspecified heart failure type Insulin [place], Use as directed 450 Each 1 10/01/2019 [...] as of this encounter (statuses as of 11/28/2019) Active Problems Patient Care Coordination Note Diabetes [...] 120-160 My Diabetes Care Plan includes the [place]: ? Check and record my blood glucose at [facility] once a day, alternating between checking before breakfast and checking 2 hours after my largest meal ? Check and record blood pressure at [facility] once a week ? Exercise [...] ? Check and record blood pressure at [facility] once a week and write [...] drink per day for most women and legal editor weight men ? If I am a smoker, stop smoking ? Manage stress by identifying three way s to reduce stress ? [employer] (www.[email or web address]/[employer]) is an online tool that will allow me to review lab results and portions of my health record, and to communicate with healthcare providers as needed. If I do not have a [employer] account, I will discuss this wi th [...] as of this encounter (statuses as of 11/28/2019) Resolved Problems Problem Noted Date Resolved Date Cellulitis of toe of right foot 10/01/2019 10/01/19 20 HTN (hypertension) 11/03/2014 10/01/2019 documented as of this encounter (statuses as of 11/28/2019) Immunizations Name Administration Dates Next Due Influenza [...] Type Group MEDICARE MEDICARE PART xxxxxxxxxxx 1996-[place] [phone] [address] Medicare A & B nt 2 [id number] [place] [id number] documented as of this encounter
--- OUTSIDE RECORDS SUMMARY | 2020-01-06 15:04 | XMS REPORT | Summary of Care ---
:1940 Author Organization [facility] - [facility] Address [address] [place] [address] Care Team Providers Name Role Phone Pcp, Does Not Have A Primary Care Provider Reason for Visit Reason Comments Other glucose check Auth/Cert Status Reason Specialty Diagnoses / Referred By Referred To Procedures Contact Contact Emergency Medicine Adc Em ergency Dept [address] [id number] Fax: Encounter Details Date Type Department Care Team Description 01/06/2020 Emergency ADC-Emergency Gil Hogan Uncontrol led type 1 Department diabetes mellitus with [address] [place] [address] hyperglyce tacho ([address] [id number] Dx) [address] [phone] [id number] Allergies No Known Allergiesdocumented as of this encounter (statuses as of 01/06/2020) Medications Medication Sig Dispensed Refills Start Date [...] heart failure, unspecified heart failure type Insulin [place], Use as directed 450 Each 1 10/01/2019 [...] 2 diabetes, TIMES DAILY uncontrolled, with neuropathy traMADol (ULTRAM) 50 mg Take 1 tablet by 20 tablet 0 0 Active tabletIndications: mouth every 6 Uncontrolled type 1 (six) hours as diabetes mellitus with needed for Pain hyperglycemia (scale 7-10). documented as of this encounter (statuses as of 01/06/2020) Active Problems Patient Care Coordination Note Diabetes [...] 120-160 My Diabetes Care Plan includes the jeovany wing: ? Check and record my blood glucose at [place] once a day, alternating between checking before breakfast and checking 2 hours after my largest meal ? Check and record blood pressure at [facility] once a week ? Exercise at least [...] drink per day for most women and product technology scientist weight men ? If I am a smoker, stop smoking ? Manage stress by identifying three way s to reduce stress ? [employer] (www.[email or web address]/[employer]) is an online tool that will allow me to review lab results and portions of my health record, and to communicate with healthcare providers as needed. If I do not have a [employer] account, I will discuss this wi th [...] as of this encounter (statuses as of 01/06/2020) Resolved Problems Problem Noted Date Resolved Date Cellulitis of toe of right foot 10/01/2019 10/01/19 20 HTN (hypertension) 11/03/2014 10/01/2019 documented as of this encounter (statuses as of 01/06/2020) Immunizations Name Administration Dates Next Due Influenza [...] Travel End No recent travel history available. COVID-19 Exposure Response Date Recorded In the last month, have you been in contact with No / Unsure 01/06/2020 4:11 AM CDT someone who was confirmed or suspected to have Coronavirus / COVID-19? 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 PROCEDURES IN THE ER TODAY: Orders Placed This Encounter Procedures POCT GLUCOSE (AUTOMATED) Acute Care Arterial Blood Gas. AC PANEL 20 + LACTIC ACID MEDICATIONS ADMINISTERED IN THE ER TODAY AND DISCHARGE MEDICATIONS: Orders Placed This Encounter Medications insulin regular human (HUMULIN R) injection 5 Units DISCONTD: traMADol (ULTRAM) 50 mg/10 mL oral syringe acetaminophen (TYLENOL) tablet 975 mg ibuprofen (IBU) tablet 600 mg traMADol (ULTRAM) 50 mg tablet FOLLOW-UP RECOMMENDATIONS: RECOMMEND FOLLOW-UP WITH A PRIMARY CARE PROVIDER OR SPECIALIST IN 2-5 DAYS, ESPECIALLY IF NO IMPROVEMENT IN SYMPTOMS. MAY FOLLOW-UP WITH A PROVIDER OF YOUR CHOICE, SUCH : 1. A PHYSICIAN OF YOUR CHOICE 2. [facility], . LOCATIONS IN [facility] 3. [facility], [address] [place] [address]; [phone] OR, IF YOU WISH TO FOLLOW-UP WITHIN THE [facility], MAY TRY THESE OPTIONS (CLINIC APPOINTMENTS AVAILABLE ON [id number] BASIS): 1. SCHEDULE AN APPOINTMENT ONLINE AT [email or web address] 2. OR CALL THE [facility] AT OR 3. OR CALL YOUR [facility] PHYSICIAN'S OFFICE DIRECTLY IF YOU ARE ALREADY AN ESTABLISHED [facility] PATIENT. RETURN TO ER FOR WORSENING OF SYMPTOMS documented in this encounter Plan of Treatment Name Type Priority Associated Diagnoses Date/Ti me Acute Care Arterial LAB STAT Uncontrolled type 1 0 01/06/2020 4:51 AM Blood Gas. diabetes mellitus with CDT hyperglycemia Name Type Priority Associated Diagnoses Order S chedule Acute Care Arterial LAB Routine Uncontrolled type 1 O NCE for 1 Occurrences Blood Gas. diabetes mellitus with start ing 01/06/2020 hyperglycemia until 01/06/20 20 Health Maintenance Due Date Last Done Comments EYE EXAM 1948 DTaP,Tdap,and Td Vaccines (1 - 1949 Tdap) FOOT EXAM 1956 Zoster Recombinant Vaccine 1988 (SHINGRIX) (1 of 2) Medicare Wellness Visit 2003 Osteoporosis Screening 2003 HgA1C 04/02/2020 10/01/2019, 10/18/2016, 12/16/2015, Additional history exists CREATININE (SERUM) 09/09/2020 09/09/2019, 08/31/2019, 12/04/2018, Additional history exists Depression Screening 09/30/2020 10/01/2019 LDL-C 09/30/2020 10/01/2019, 12/16/2015, 02/10/2015, Additional history exists PNEUMOCOCCAL VACCINES 65+ (2 of 2 09/30/2020 10/01/2019, - PPSV23) URINE MICROALBUMIN 09/30/2020 10/01/2019, 02/10/2015, 04/15/2006 INFLUENZA VACCINE Completed 10/01/2019 documented as of this encounter Procedures Procedure Name Priority Date/Time Associated Diagnosis Comme nts AC PANEL 20 + STAT 01/06/2020 4:51 Uncontrolled type 1 Res ults for this LACTIC ACID AM CDT diabetes mellitus with proce dure are in hyperglycemia the results section. POCT GLUCOSE Routine 01/06/2020 4:18 Results for this (AUTOMATED) AM CDT procedure are i n the results section. NOTICE OF PRIVACY Routine 01/06/2020 4:12 PRACTICES AM CDT CONSENT/REFUSAL Routine 01/06/2020 4:11 FOR DIAGNOSIS AND AM CDT TREATMENT documented in this encounter Results AC PANEL 20 + LACTIC ACID (01/06/2020 4:51 AM CDT) [facility] Sig nature PH 7.49 (H) 7.35 - 7.45 [facility] PCO2 30 (L) 35 - 45 mmHg [facility] PO2 91 80 - 100 mmHg [facility] HCO3 22 22 - 26 mEq/L [facility] BE -0.2 -3.0 - 3.0 mEq/L [facility] THB 14.5 12.0 - 16.0 g/dL [facility] %O2HB 91.6 (L) 94.0 - 99.0 % [facility] %COHB ART 6.2 (H) 0.0 - 1.5 % [facility] %METHB ART 0.2 (L) 0.4 - 1.5 % [facility] VOL%O2 ART 18.7 15.0 - 23.0 % [facility] NA 137 135 - 145 mmol/L [facility] K+ 3.7 3.5 - 5.0 mmol/L [facility] AC CA IONZ 4.80 4.50 - 5.30 mg/dL [facility] GLUCOSE 342 (H) 70 - 110 mg/dL [facility] LACTIC ACID 1.36 0.50 - 2.20 mmol/L [facility] Specimen Blood - ARTERIAL Performing Organization Address City/[facility] Phone Number [facility] CLIA: [id number], [address] [place], [place] [address] POCT GLUCOSE (AUTOMATED) (01/06/2020 4:18 AM CDT) [facility] POCT GLU 349 (H) 70 - 110 mg/dL [facility] Specimen Blood Performing Organization Address City/[facility] Phone Number [facility] CLIA: [id number], [address] [place], [place] [address] documented in this encounter Visit Diagnoses Diagnosis Uncontrolled type 1 diabetes mellitus wi th hyperglycemia - Primary documented in this encounter Administered Medications Medication Order MAR Action Action Date Dose Rate Site acetaminophen (TYLENOL) tablet 975 mg 975 mg, Oral, ONCE, 1 dose, Mon01/06/20 at 0600, GURDEEP Medication Order MAR Action Action Date Dose Rate Site ibuprofen (IBU) tablet 600 mg Given 01/06/2020 4:51 AM CDT 600 mg 600 mg, Oral, ONCE, 1 dose, Mon01/06/20 at 0600, GURDEEP insulin regular human (HUMULIN R) Given 01/06/2020 4:50 AM CDT 5 Units Abdomen-SC injection 5 Units 5 Units, Subcutaneous, ONCE, 1 dose, Mon01/06/20 at 0545, Routine documented in this encounter Insurance Payer Benefit Plan / Subscriber ID Effective Dates Phone Addre ss Type Group MEDICARE MEDICARE PART xxxxxxxxxxx 1996-[place] [phone] [facility] Medicare A & B nt 2 [id number] [place] BONDS [id number] documented as of this encounter
== END 2020-01-06 14:20 | disposition home or self-care (01) ==
LOC: ER 11:15
DX: M54.5 Low back pain (principal); I10 Essential (primary) hypertension; F17.210 Nicotine dependence, cigarettes, uncomplicated
CPT/HCPCS: 72100; 81003; 81015; 87086; 87088; 96372; 99284

== ENCOUNTER 2020-01-21 07:38 | Emergency (ER) | payer OTHER ==
--- OUTSIDE RECORDS SUMMARY | 2020-01-21 07:50 | XMS REPORT | Continuity of Care Document ---
:1940 Author Organization [facility] t Address [address] [place] [address] Care Team Providers Name Role Phone Clifton Abel DO Attending Clinician Samira HERRERA, S Attending Clinician Juan David HERRERA Attending Clinician Rosana HERRERA, A Attending Clinician Problems This patient has no known problems. Allergies, Adverse Reactions, Alerts This patient has no known allergies or adverse reactions. Medications This patient has no known medications. Procedures This patient has no known procedures. Encounters Start End Encounter Admission Attending Care Care Encounter Source Date/Time Date/Time Type Type Clinicians Facility Department ID 2020-01-13 2020-01-13 [id number] 09:13:50 09:44:00 Jazmyn Armenta [id number] [place] [id number] [place] [id number] 2020-01-06 2020-01-06 Emergency Samira [facility] [id number] 04:15:20 05:12:00 Gil Armenta [id number] [place] [id number] [place] [phone] [id number] 2019-11-25 2019-11-25 Telephone Juan David [facility] [id number] 00:00:00 00:00:00 Eric Armenta [id number] [place] [id number] Professio [phone] [address] 2019-11-22 2019-11-22 Telephone [facility] [id number] 00:00:00 00:00:00 Eric Armenta [id number] [place] [id number] Professio [phone] [address] 2019-11-13 2019-11-13 Refill [facility] [id number] 00:00:00 00:00:00 Eric Mishra [id number] [place] [id number] Professio [phone] [place] [address] Office [facility] 2019-10-22 2019-10-22 [facility]ill [facility] [id number] 00:00:00 00:00:00 Malika Armenta [id number] [place] [id number] Professio [phone] [facility] [address] [facility] 2019-10-02 2019-10-02 Pre Visit [facility] [id number] 00:00:00 00:00:00 Outreach Eric Armenta [id number] [place] [id number] Professio [phone] [address] 2019-10-01 2019-10-01 Office [facility] [id number] 10:34:26 16:09:30 Visit Eric Armenta [id number] [place] [id number] Professio [phone] [address] Results This patient has no known results.
--- OUTSIDE RECORDS SUMMARY | 2020-01-21 07:54 | XMS REPORT | Summary of Care ---
:1940 Author Organization [facility] Address [address] [place] [address] Care Team Providers Name Role Phone Pcp, Does Not Have A Primary Care Provider Reason for Visit Reason Comments Back Pain Auth/Cert Status Reason Specialty Diagnoses / Referred By Referred To Procedures Contact Contact Emergency Medicine Adc Em ergency Dept [address] [place] [address] Fax: Encounter Details Date Type Department Care Team Description 01/13/2020 Emergency ADC-Emergency Depart ment Jazmyn Shannon, DO [address] [facility] [address] [address] [phone] Allergies No Known Allergiesdocumented as of this encounter (statuses as of 01/13/2020) Medications Medication Sig Dispensed Refills Start End Date Status Date proMETHazine Take 1 Tab by 20 Tab 0 Act [place] (PHENERGAN) 12.5 mg mouth every 6 5 tabletIndications: (six) hours Nausea as needed for Nausea and Vomiting (N/V). Liraglutide (VICTOZA inject 0.2 mL 1 Syringe [...] heart failure, unspecified heart failure type Insulin [place], Use as 450 Each 1 Act [place] [...] diabetes, THREE TIMES uncontrolled, with DAILY neuropathy traMADol (ULTRAM) 50 Take 1 tablet 20 tablet 0 Active mg by mouth 0 tabletIndications: every 6 (six) Uncontrolled type 1 hours as diabetes mellitus needed for with hyperglycemia Pain (scale 7-10). acetaminophen-codein Take 1 Tab by 20 Tab 0 01/12 Discontinued e (TYLENOL-CODEINE mouth every 4 5 20 (Error) #3) 300-30 mg tablet (four) hours as needed for Pain (scale 4-6). documented as of this encounter (statuses as of 01/13/2020) Active Problems Patient Care Coordination Note Diabetes [...] Check and record my blood glucose at [place] once a day, alternating between checking [...] ? 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 If I am a smoker, stop smoking ? Manage stress by identifying three way s to reduce stress ? [employer] (www.[email or web address]/[employer]) is an online tool that will allow me to review lab results and portions of my health record, and to communicate with healthcare providers as needed. If I do not have a [employer] account, I will discuss this wi th [...] as of this encounter (statuses as of 01/13/2020) Resolved Problems Problem Noted Date Resolved Date Cellulitis of toe of right foot 10/01/2019 10/01/19 20 HTN (hypertension) 11/03/2014 10/01/2019 documented as of this encounter (statuses as of 01/13/2020) Immunizations Name Administration Dates Next Due Influenza [...] been in contact with No / Unsure 01/13/2020 9:19 AM CDT someone who was confirmed or suspected to have Coronavirus / COVID-19? 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 Medicare A & B nt 2 [id number] [place] BON[place] [id number] documented as of this encounter
[2020-01-21 09:08] LABS: Urine Blood TRACE (NEG); Urine Glucose 2+ (NEG); Urine Protein NEGATIVE (NEG); Urine Specific Gravity 1.015 (1.005-1.030); Urine pH 5.5 (5.0-7.0)
[2020-01-21 09:11] LABS: Urine Bacteria <20 /HPF (<20); Urine Culture Reflex Order REFLEXED; Urine RBC <5 /HPF (NONE SEEN)
--- NOTE | 2020-01-21 09:16 | EDPHYS ---
Physician Documentation [facility] Name: Lisa Shannon Age: 79 yrs Sex: Female : 1940 Arrival Date: 01/21/2020 Time: 07:41 Bed 15 Private MD: ED Physician Pascual De La Cruz HPI: 01/20 08:37 This 79 yrs old Female presents to ER via Ambulatory with complaints of Low kb Back Pain. 08:37 The patient presents with pain that is chronic, with no known mechanism of injury. The kb symptoms are located in the right low back. The pain radiates to the low back area. The problem was sustained from a chronic condition. Onset: The symptoms/episode began/occurred "months and months ago". Modifying factors: The patient symptoms are alleviated by nothing, the patient symptoms are aggravated by nothing. Associated signs and symptoms: Pertinent positives: dysuria, Pertinent negatives: abdominal pain, constipation, fever, numbness, tingling, weakness. Severity of symptoms: At their worst the symptoms were moderate, in the emergency department the symptoms are unchanged. The patient has experienced similar episodes in the past, chronically. The patient has been recently seen by a physician:. Pt reports she has had low back pain for months. States she has had it looked at a few times and nothing shows up. Was given some pain pills for it by her doctor a while ago, then came here and had x-rays done. States she was told to come back to see if it has gotten any better, which it has a little bit. States the pain is constant on the right and more intermittent on the left. . Historical: - Allergies: 08:04 No Known Allergies; iw - PMHx: 08:04 acid reflux; Hypertension; iw - PSHx: 08:04 None; iw - Immunization history:: Adult Immunizations up to date. - Social history:: Smoking status: Patient reports the use of cigarette tobacco products, smokes one pack cigarettes per day. ROS: 08:36 Constitutional: Negative for fever, chills, and weight loss, Cardiovascular: Negative kb for chest pain, palpitations, and edema, Respiratory: Negative for shortness of breath, cough, wheezing, and pleuritic chest pain, Abdomen/GI: Negative for abdominal pain, nausea, vomiting, diarrhea, and constipation, MS/Extremity: Negative for injury and deformity, Skin: Negative for injury, rash, and discoloration, Neuro: Negative for headache, weakness, numbness, tingling, and seizure. 08:36 Back: Positive for pain at rest, pain with movement, of the right low back. 08:37 : Positive for burning with urination. kb Exam: 08:36 Constitutional: This is a well developed, well nourished patient who is awake, alert, kb and in no acute distress. Head/Face: Normocephalic, atraumatic. Chest/axilla: Normal chest wall appearance and motion. Nontender with no deformity. No lesions are appreciated. Cardiovascular: Regular rate and rhythm with a normal S1 and S2. No gallops, murmurs, or rubs. Normal PMI, no JVD. No pulse deficits. Respiratory: Lungs have equal breath sounds bilaterally, clear to auscultation and percussion. No rales, rhonchi or wheezes noted. No increased work of breathing, no retractions or nasal flaring. Abdomen/GI: Soft, non-tender, with normal bowel sounds. No distension or tympany. No guarding or rebound. No evidence of tenderness throughout. Back: No spinal tenderness. No costovertebral tenderness. Full range of motion. Skin: Warm, dry with normal turgor. Normal color with no rashes, no lesions, and no evidence of cellulitis. MS/ Extremity: Pulses equal, no cyanosis. Neurovascular intact. Full, normal range of motion. Neuro: Awake and alert, GCS 15, oriented to person, place, time, and situation. Cranial nerves II-XII grossly intact. Motor strength 5/5 in all extremities. Sensory grossly intact. Cerebellar exam normal. Normal gait. Vital Signs: 08:01 BP 121 / 84; Pulse 75; Resp 18; Temp 98.8; Pulse Ox 98% on R/A; Weight 58.97 kg; Height iw 5 ft. 0 in. (152.40 cm); Pain 7/10; 08:55 BP 120 / 72; Pulse 79; Resp 16; Pulse Ox 98% ; bp 09:19 BP 123 / 76; Pulse 82; Resp 16; Temp 98.5; Pulse Ox 98% ; bp 08:01 Body Mass Index 25.39 (58.97 kg, 152.40 cm) iw MDM: 08:30 Patient medically screened. kb 08:36 Data reviewed: vital signs, nurses notes. Data interpreted: Pulse oximetry: on room air kb is 98 %. Interpretation: normal. 09:14 Counseling: I had a detailed discussion with the patient and/or guardian regarding: the kb historical points, exam findings, and any diagnostic results supporting the discharge/admit diagnosis, lab results, radiology results, the need for outpatient follow up, a family practitioner, to return to the emergency department if symptoms worsen or persist or if there are any questions or concerns that arise at home. 01/20 08:35 Order name: Urine Microscopic Only; Complete Time: 09:12 kb 01/20 08:47 Order name: Urine Dipstick--Ancillary (enter results); Complete Time: 09:12 em1 01/20 08:35 Order name: Urine Dipstick-Ancillary (obtain specimen); Complete Time: 08:45 kb 01/20 09:18 Order name: Urine Culture EDMS Administered Medications: No medications were administered Disposition: 10:53 Co-signature as Attending Physician, Pascual De La Cruz MD. rn Disposition: 01/21/20 09:15 Discharged to Home. Impression: Low back pain - chronic. - Condition is Stable. - Discharge Instructions: Musculoskeletal Pain, Back Pain, Adult, [id number]. - Medication Reconciliation Form, Thank You Letter, Antibiotic Education, Prescription Opioid Use form. - Follow up: Emergency Department; When: As needed; Reason: Worsening of condition. Follow up: Private Physician; When: 2 - 3 days; Reason: Recheck today's complaints, Continuance of care, Re-evaluation by your physician. Signatures: Dispatcher MedHo EDWY Melba Lofton, KENJI RESENDIZP-Jodie Baron RN RN iw Nieto, Roman, MD MD rn Peltier, Brian RN RN bp Corrections: (The following items were deleted from the chart) 08:37 08:36 Constitutional: Negative for fever, chills, and weight loss, Cardiovascular: kb Negative for chest pain, palpitations, and edema, Respiratory: Negative for shortness of breath, cough, wheezing, and pleuritic chest pain, Abdomen/GI: Negative for abdominal pain, nausea, vomiting, diarrhea, and constipation, : Negative for injury, bleeding, discharge, and swelling, MS/Extremity: Negative for injury and deformity, Skin: Negative for injury, rash, and discoloration, Neuro: Negative for headache, weakness, numbness, tingling, and seizure, kb 09:15 09:15 01/21/2020 09:15 Discharged to Home. Impression: Low back pain. Condition is kb Stable. Forms are Medication Reconciliation Form, Thank You Letter, Antibiotic Education, Prescription Opioid Use. Follow up: Emergency Department; When: As needed; Reason: Worsening of condition. Follow up: Private Physician; When: 2 - 3 days; Reason: Recheck today's complaints, Continuance of care, Re-evaluation by your physician. kb 09:35 09:15 01/21/2020 09:15 Discharged to Home. Impression: Low back pain - chronic. bp Condition is Stable. Forms are Medication Reconciliation Form, Thank You Letter, Antibiotic Education, Prescription Opioid Use. Follow up: Emergency Department; When: As needed; Reason: Worsening of condition. Follow up: Private Physician; When: 2 - 3 days; Reason: Recheck today's complaints, Continuance of care, Re-evaluation by your physician. kb
--- NOTE | 2020-01-21 09:16 | ER ---
Nurse's Notes [facility] Name: Lisa Shannon Age: 79 yrs Sex: Female : 1940 Arrival Date: 01/21/2020 Time: 07:41 Bed 15 Private MD: Diagnosis: Low back pain-chronic Presentation: 01/20 08:01 Chief complaint: Patient states: has right hip, low back pain, radiates over to left iw side, has been hurting for over a month, had xrays done and was told she needed to see an orthopedic doctor and no one will see her. Coronavirus screen: Proceed with normal triage. Patient denies a cough. Patient denies shortness of breath or difficulty breathing. Patient denies measured and/or subjective temperature greater than 100.4F prior to today's visit. Patient denies travel on a cruise ship or to a country the [facility] currently lists as an affected area. Patient denies contact with known and/or suspected case of COVID-19. Ebola Screen: Patient negative for fever greater than or equal to 101.5 degrees Fahrenheit, and additional compatible Ebola Virus Disease symptoms Patient denies exposure to infectious person. Patient denies travel to an Ebola-affected area in the 21 days before illness onset. No symptoms or risks identified at this time. Initial Sepsis Screen: Does the patient meet any 2 criteria? No. Patient's initial sepsis screen is negative. Does the patient have a suspected source of infection? No. Patient's initial sepsis screen is negative. Risk Assessment: Do you want to hurt yourself or someone else? Patient reports no desire to harm self or others. Onset of symptoms was November 2019. 08:01 Method Of Arrival: Ambulatory iw 08:01 Acuity: KALEY 4 iw Triage Assessment: 08:29 General: Appears in no apparent distress. uncomfortable, Behavior is calm, cooperative, bp appropriate for age. Pain: Complains of pain in low back area. EENT: No deficits noted. Neuro: No deficits noted. Cardiovascular: No deficits noted. Respiratory: No deficits noted. GI: No signs and/or symptoms were reported involving the gastrointestinal system. : No signs and/or symptoms were reported regarding the genitourinary system. Derm: No deficits noted. Musculoskeletal: No deficits noted. Historical: - Allergies: 08:04 No Known Allergies; iw - PMHx: 08:04 acid reflux; Hypertension; iw - PSHx: 08:04 None; iw - Immunization history:: Adult Immunizations up to date. - Social history:: Smoking status: Patient reports the use of cigarette tobacco products, smokes one pack cigarettes per day. Screenin:30 Abuse screen: Denies threats or abuse. Denies injuries from another. Nutritional bp screening: No deficits noted. Tuberculosis screening: No symptoms or risk factors identified. Fall Risk None identified. Assessment: 08:30 General: SEE TRIAGE NOTE. bp 09:19 Reassessment: PT D/C HOME AMBULATORY, DX WITH CHRONIC BACK PAIN. bp Vital Signs: 08:01 BP 121 / 84; Pulse 75; Resp 18; Temp 98.8; Pulse Ox 98% on R/A; Weight 58.97 kg; Height iw 5 ft. 0 in. (152.40 cm); Pain 7/10; 08:55 BP 120 / 72; Pulse 79; Resp 16; Pulse Ox 98% ; bp 09:19 BP 123 / 76; Pulse 82; Resp 16; Temp 98.5; Pulse Ox 98% ; bp 08:01 Body Mass Index 25.39 (58.97 kg, 152.40 cm) iw ED Course: 07:41 Patient arrived in ED. ag5 08:04 Triage completed. iw 08:04 Arm band placed on. iw 08:29 Danny Connor, RN is Primary Nurse. bp 08:30 Melba Lofton FNP-C is PHCP. kb 08:30 Pascual De La Cruz MD is Attending Physician. kb 08:30 Patient has correct armband on for positive identification. Bed in low position. Call bp light in reach. Side rails up X2. 09:19 No provider procedures requiring assistance completed. Patient did not have IV access bp during this emergency room visit. Administered Medications: No medications were administered Outcome: 09:15 Discharge ordered by . kb 09:19 Discharged to home ambulatory. bp 09:19 Condition: stable 09:19 Discharge instructions given to patient, Instructed on discharge instructions, follow up and referral plans. medication usage, Demonstrated understanding of instructions, follow-up care, medications, Prescriptions given X 2. 09:35 Patient left the ED. bp Signatures: Melba Lofton FNP-C FNP-Jodie Baron RN RN iw Danny Connor RN RN bp Christ Fontenot ag5
[2020-01-21 09:42] VITALS: O2SAT 98
[2020-01-21 09:45] VITALS: BP 123/76; TEMP 98.5
== END 2020-01-21 09:35 | disposition home or self-care (01) ==
LOC: ER 07:38
DX: M54.5 Low back pain (principal); R30.0 Dysuria; I10 Essential (primary) hypertension; F17.210 Nicotine dependence, cigarettes, uncomplicated
CPT/HCPCS: 81003; 81015; 87077; 87086; 87088; 87186; 99282

== ENCOUNTER 2020-09-19 13:08 | Inpatient (IN) | payer OTHER ==
--- OUTSIDE RECORDS SUMMARY | 2020-09-19 13:11 | XMS REPORT | Continuity of Care Document ---
:1940 Author Organization [facility] t Address [address] [place] [address] Care Team Providers Name Role Phone Juan David HERRERA Attending Clinician Problems This patient has no known problems. Allergies, Adverse Reactions, Alerts This patient has no known allergies or adverse reactions. Medications This patient has no known medications. Procedures This patient has no known procedures. Encounters Start End Encounter Admission Attending Care Care Encounter Source Date/Time Date/Time Type Type Clinicians Facility Department ID 2020-09-10 2020-09-10 Telephone [facility] [id number] 00:00:00 00:00:00 Eric Armenta [id number] [place] [id number] Profguzman [phone] [facility] [address] [facility] 2020-09-02 2020-09-02 Telephone [facility] [id number] 00:00:00 00:00:00 Eric Armenta [id number] [place] [id number] Professio [id number] [facility] [address] [facility] 2020-08-26 2020-08-26 Office [facility] [id number] 09:57:11 09:57:22 Visit Eric Armenta [id number] [place] [id number] Profess [phone] [facility] [address] Building Results This patient has no known results.
--- NOTE | 2020-09-19 14:46 | RAD REPORT ---
EXAM DESCRIPTION: CT - Head Brain Wo Cont - 09/19/2020 2:18 pm CLINICAL HISTORY: Head injury status post fall COMPARISON: None TECHNIQUE: Computed axial tomography of the head was obtained. IV contrast was not requested. All CT scans are performed using dose optimization technique as appropriate and may include automated exposure control or mA/KV adjustment according to patient size. FINDINGS: An intracranial bleed is not seen . The ventricles are normal in caliber. No extra-axial fluid collection is noted. Moderate low-density areas within periventricular, deep and subcortical white matter likely represent ischemic changes secondary to small vessel disease. Fluid within the sinuses/ mastoids is not seen. IMPRESSION: No acute intracranial abnormality is seen. If patient's symptoms persist MRI of the bra in would be recommended.
[2020-09-19 14:47] LABS: Protime INR 0.86
[2020-09-19 14:51] LABS: Absolute Lymphocytes (CBC) 2.4 K/uL (0.7-4.9); Basophils % 0.5 % (0-1.3); Hematocrit 39.8 % (36.0-45.0); Lymphocytes % 30.1 % (15.3-44.8); MPV 7.9 fL (7.6-11.3); RBC Red Blood Cell Count 4.15 M/uL (3.86-4.86)
--- NOTE | 2020-09-19 14:54 | RAD REPORT ---
EXAM DESCRIPTION: CT - Thorax Wo Yandel - 09/19/2020 2:18 pm CLINICAL HISTORY: Chest pain status post fall COMPARISON: none TECHNIQUE: Computed axial tomography of the chest was obtained. Contrast was not requested. All CT scans are performed using dose optimization technique as appropriate and may include automated exposure control or mA/KV adjustment according to patient size. FINDINGS: The evaluation of mediastinum, hali and vessels is limited secondary to lack of IV contras t administration. Mildly to moderately displaced fracture involves the sixth left lateral rib. Nondisplaced fracture in volves the seventh left posterior rib. Nondisplaced fracture involves the eighth left posterior rib. No pulmonary contusion. Mild ground-glass opacities within the lungs indicative of a mild alveolitis. No mediastinal hematoma. No pleural effusion. Coronary arterial calcifications are present. IMPRESSION: Fractures involving the sixth, seventh and left ribs4
[2020-09-19 15:05] LABS: ALT/SGPT 19 U/L (12-78); AST/SGOT 13 U/L (15-37); Albumin 3.6 g/dL (3.4-5.0); Alkaline Phosphatase 130 U/L (45-117); BUN Blood Urea Nitrogen 21 mg/dL (7-18); Bicarbonate 23 mmol/L (21-32); Bilirubin Direct < 0.1 mg/dL (0-0.2); Bilirubin Total 0.2 mg/dL (0.2-1.0); Glucose Level 149 mg/dL (74-106); Magnesium 1.8 mg/dL (1.8-2.4); NT PRO-BNP 430 pg/mL (<450); Potassium 4.1 mmol/L (3.5-5.1); Protein, Total 7.6 g/dL (6.4-8.2); Sodium Level 142 mmol/L (136-145); Troponin (Emerg Dept Use Only) 0.09 ng/mL (0.0-0.045)
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
--- NOTE | 2020-09-19 15:20 | ER ---
Nurse's Notes [facility] Name: Lisa Shannon Age: 80 yrs Sex: Female : 1940 Arrival Date: 09/19/2020 Time: 13:11 Bed 18 Private MD: Diagnosis: Syncope and collapse;Multiple fractures of ribs, left side;Elevated troponin Presentation: 09/19 13:28 Chief complaint: Patient states: "I fell accouple of days ago in my bathroom and I am jd3 hurting pretty bad now on my left shoulder, left ribs and left arm. I don't remember what happened so I don't know if I blacked out or what happened.". Coronavirus screen: At this time, the client does not indicate any symptoms associated with coronavirus-19. Ebola Screen: Patient negative for fever greater than or equal to 101.5 degrees Fahrenheit, and additional compatible Ebola Virus Disease symptoms. Initial Sepsis Screen: Does the patient meet any 2 criteria? No. Patient's initial sepsis screen is negative. Does the patient have a suspected source of infection? No. Patient's initial sepsis screen is negative. Risk Assessment: Do you want to hurt yourself or someone else? Patient reports no desire to harm self or others. Onset of symptoms was September 17, 2020. 13:28 Method Of Arrival: Wheelchair jd3 13:28 Acuity: KALEY 3 jd3 Triage Assessment: 17:21 General: Appears distressed, uncomfortable, Behavior is cooperative, appropriate for bp age, anxious. Pain: Complains of pain in left lateral anterior chest and left lateral posterior chest and anterior aspect of left upper chest. EENT: No deficits noted. Neuro: No deficits noted. Cardiovascular: No deficits noted. Respiratory: No deficits noted. GI: No signs and/or symptoms were reported involving the gastrointestinal system. : No signs and/or symptoms were reported regarding the genitourinary system. Derm: No deficits noted. Musculoskeletal: No deficits noted. Historical: - Allergies: 13:30 No Known Allergies; jd3 - Home Meds: 13:30 Isosorbide Mononitrate Oral [Active]; jd3 - PMHx: 13:30 acid reflux; Hypertension; CHF; jd3 - Immunization history:: Adult Immunizations up to date. - Social history:: Smoking status: Patient reports the use of cigarette tobacco products, smokes one pack cigarettes per day. Screenin:30 Abuse screen: Denies threats or abuse. Denies injuries from another. Nutritional bp screening: No deficits noted. Tuberculosis screening: No symptoms or risk factors identified. Fall Risk None identified. Assessment: 13:30 General: SEE TRIAGE NOTE. bp 15:30 Reassessment: No changes from previously documented assessment. Patient and/or family bp updated on plan of care and expected duration. Pain level reassessed. ADMIT PENDING. 17:22 Reassessment: ADMIT COMPLETE, BED ASSIGNED. bp Vital Signs: 13:30 BP 97 / 74; Pulse 82; Resp 19 S; Temp 97.9(TE); Pulse Ox 100% on R/A; Weight 59.42 kg jd3 (R); Height 5 ft. 5 in. (165.10 cm) (R); Pain 10/10; 14:41 BP 141 / 59; Pulse 66; Resp 17; Temp 97.6(O); Pulse Ox 100% on R/A; mh5 15:46 BP 175 / 83 Supine; Pulse 82; Resp 18; Pulse Ox 100% on R/A; mh5 15:48 BP 163 / 72 Sitting; Pulse 70; Resp 16; Pulse Ox 100% on R/A; mh5 15:50 BP 163 / 80 Standing; Pulse 87; Resp 17; Pulse Ox 100% on R/A; mh5 17:17 BP 125 / 53; Pulse 73; Resp 16; Pulse Ox 100% ; bp 13:30 Body Mass Index 21.80 (59.42 kg, 165.10 cm) jd3 ED Course: 13:11 Patient arrived in ED. ag5 13:18 Melba Lofton FNP-C is PHCP. kb 13:19 Pascual De La Cruz MD is Attending Physician. kb 13:20 Danny Connor, CEDRIC is Primary Nurse. bp 13:30 Triage completed. jd3 13:30 Arm band placed on. jd3 14:09 Basic Metabolic Panel Sent. mh5 14:09 Basic Metabolic Panel Sent. mh5 14:09 CBC with Diff Sent. mh5 14:09 LFT's Sent. mh5 14:09 Magnesium Sent. mh5 14:10 NT PRO-BNP Sent. 5 14:10 PT-INR Sent. mh5 14:10 Troponin (emerg Dept Use Only) Sent. [facility] 14:18 CT Chest Wo Con In Process Unspecified. EDMS 14:18 CT Head Brain wo Cont In Process Unspecified. EDMS 14:20 Initial lab(s) drawn, by me, sent to lab. Inserted saline lock: 22 gauge in right [facility] antecubital area, using aseptic technique. Blood collected. 14:21 Patient has correct armband on for positive identification. Bed in low position. Call [facility] light in reach. Side rails up X 1. Warm blanket given. Pulse ox on. NIBP on. 14:39 Lab(s) recollected, by me, sent to lab. [facility] 15:19 Bertrand Currie DO is Hospitalizing Provider. kb 16:01 COVID-19 : Document "Date of Symptom Onset" if Symptomatic. Sent. [facility] 16:01 COVID swab sent to lab. [facility] 17:20 No provider procedures requiring assistance completed. Patient admitted, IV remains in bp place. Administered Medications: 15:30 Drug: fentaNYL (PF) 25 mcg Route: IVP; Site: right antecubital; bp 16:54 Follow up: Response: No adverse reaction bp 16:53 Drug: morphine 4 mg Route: IVP; Site: right antecubital; bp 17:18 Follow up: Response: Pain is decreased bp Outcome: 15:19 Decision to Hospitalize by Provider. kb 17:25 Admitted to Med/surg accompanied by tech, via stretcher, room 423, with chart, Report bp called to ALANNA STEELE 17:25 Condition: stable 17:25 Instructed on the need for admit. 17:46 Patient left the ED. bp Signatures: Dispatcher [employer] EDMS Melba Lofton, KENJI VALADEZ-Jacqueline Hernandez 5 Sg Turner RN RN Danny South RN RN Christ Mendoza 5
--- NOTE | 2020-09-19 15:57 | P.HP ---
Certification for Inpatient Patient admitted to: Observation With expected LOS: <2 Midnights Patient will require the following post-hospital care: Home Health Services Practitioner: I am a practitioner with admitting privileges, knowledge of patient current condition, hospital course, and medical plan of care. Services: Services provided to patient in accordance with Admission requirements found in Title 42 Section 412.3 of the Code of Federal Regulations Patient History Date of Service: 09/19/20 Primary Care Provider: EPHRAIM Armenta Reason for admission: Syncope, chest pain History of Present Illness: 80-year-old female presented to the emergency room with chest pain, back pain, and recent syncope. Patient reports that this past week she had a syncopal episode. She does not recall the whole event but she was apparently walking from the dining room to the bathroom. Then she found herself on the ground. She did know how for how long. She knew she fell. The subsequent days she start to have pain to the left chest wall. It would radiate to the back. Over the past several days she has been having more chest pain. Chest pain now to the center of the chest radiating to the left arm and back. She denies any fever, chills. No sick contacts noted. She came to the ER for further evaluation. In the ER patient was evaluated. Initial vital sounds showed low blood pressure. Patient appeared dehydrated. CBC unremarkable. Sodium 142, potassium 4.2. BUN of 21, creatinine 0.53 with a GFR of greater than 90. Glucose 149. Troponin 0.09. CT head unremarkable. CT scan showed mild alveolitis. Mildly to moderately displaced fractures involving the 6th lateral rib, nondisplaced fracture involving the 7th lift rib cage, non displaced fracture of the 8th a left posterior rib noted. No pulmonary contusion. No mediastinal hematoma. No pneumothorax. Patient was admitted for further evaluation and treatment. When I saw the patient ER, patient was reporting pain. Patient was not in respiratory failure or distress. Patient reports history of hypertension, GERD, diabetes, COPD. She reports taking Lantus and isosorbide. She does not recall her other medications. Patient is a heavy smoker. - Past Medical/Surgical History Diabetic: Yes -: Diabetes mellitus type 2 -: COPD -: Hypertension -: CHF -: Carotid arterial disease -: GERD -: Tobacco abuse -: Carotid arterial procedure, right side Psychosocial/ Personal History: Patient lives by herself. - Family History Family History: Reviewed- Non-Contributory - Social History Smoking Status: Heavy Tobacco smoker (>10 cigarettes/day) Counseled patient to stop smoking for: less than 10 minutes Smoking therapy provided: Yes Patient receptive to therapy: Yes Alcohol use: No CD- Drugs: No Caffeine use: No Place of Residence: Home Review of Systems General: Weakness, As per HPI Eyes: Unremarkable ENT: Unremarkable Respiratory: Unremarkable Cardiovascular: Chest Pain, As per HPI Gastrointestinal: Unremarkable Genitourinary: Unremarkable Musculoskeletal: Shoulder Pain, Arm Pain, Back Pain, As per HPI Integumentary: Unremarkable Neurological: Unremarkable Lymphatics: Unremarkable Physical Examination - Physical Exam General: Alert, In no apparent distress, Oriented x3, Cooperative HEENT: Atraumatic, Normocephalic, PERRLA, Other (Dry mucous membranes) Neck: Supple Respiratory: Clear to auscultation bilaterally, Normal air movement, Other (Pain to the left chest wall.) Cardiovascular: Normal pulses, Regular rate/rhythm Gastrointestinal: Normal bowel sounds, Soft and benign, Non-distended, No tenderness, No masses, No rebound, No guarding Musculoskeletal: No erythema, No tenderness, No warmth Integumentary: No tenderness/swelling, No erythema, No warmth, No cyanosis, Other (Dry skin noted throughout) Neurological: Normal speech, Normal strength at 5/5 x4 extr, Normal tone, Normal affect - Studies Laboratory Data (last 24 hrs) 09/19/20 14:37: PT 9.9, INR 0.86 09/19/20 14:37: WBC 7.90, Hgb 13.7, Hct 39.8, Plt Count 233 09/19/20 14:37: Sodium 142, Potassium 4.1, BUN 21 H, Creatinine 0.53 L, Glucose 149 H, Magnesium 1.8, Total Bilirubin 0.2, AST 13 L, ALT 19, Alkaline Phosphatase 130 H Assessment and Plan - Plan Impression: Syncopal episode recently with fall now with fractures to the left 6th, 7th, 8th rib Mild alveolitis with history of COPD Chest pain with history of CHF Mild dehydration Diabetes mellitus type 2 insulin dependent Tobacco abuse Plan: Syncopal episode recently with fall now with fractures to the left 6th, 7th, 8th rib: CT head unremarkable. Patient will be observed and monitored closely. Will continue to monitor cardiac enzymes and telemetry. Will monitor electrolytes. Will have physical therapy and occupation therapy evaluate patient. Patient likely would benefit with home health and physical therapy at discharge. Will consult cardiology for further recommendation as well. Will provide medication for pain. DVT prophylaxis in place. Anticipate discharge likely tomorrow. Mild alveolitis with history of COPD: Will start IV Solu-Medrol. Will also start COPD medication. Chest pain with history of CHF: Monitor cardiac enzymes and telemetry. Will discuss with cardiology. Mild dehydration: Will start IV fluids. Will monitor closely. Diabetes mellitus type 2 insulin dependent: Will check A1c. Will monitor closely. Accu-Cheks in place. Will start low-dose Lantus. Tobacco abuse: Will provide nicotine patch. Discharge Plan: Home Plan to discharge in: 24 Hours - Advance Directives Does patient have a Living Will: No Does patient have a Durable POA for Healthcare: No - Code Status/Comfort Care Code Status Assessed: Yes (Patient is full code) Time Spent Managing Pts Care (In Minutes): 55
[2020-09-19] MEDS ORDERED: FENTANYL CITR 100 MCG/2 ML ONE (16:16)
[2020-09-19] MEDS ORDERED: ONDANSETRON 4 MG/2 ML VIAL ONE (17:05)
[2020-09-19] MEDS ORDERED: MORPHINE 4 MG/ML SYR ONE (17:05)
[2020-09-19] MEDS ORDERED: ALBUTEROL 2.5 MG/3 ML NEB SOL NEB PRN (18:06)
[2020-09-19] MEDS ORDERED: ACETAMINOPHEN 500 MG TAB PO PRN (18:06)
[2020-09-19] MEDS ORDERED: GLUCAGON 1 MG/VIAL IM PRN (18:06)
[2020-09-19] MEDS ORDERED: D50W 25 GM/50 ML SYRINGE IV PRN (18:06)
[2020-09-19] MEDS: INSULIN -REGULAR HUMAN 50 UNIT/0.5 ML ML SQ SCH ×2 (18:06→20:12)
[2020-09-19] MEDS ORDERED: IPRATROPIUM BROM 0.5MG/2.5ML NEB PRN (18:06)
[2020-09-19] MEDS ORDERED: ONDANSETRON 4 MG/2 ML VIAL IV PRN (18:06)
[2020-09-19 18:33] VITALS: BMI 21.8
[2020-09-19] MEDS: METHYLPREDNISOLONE 40 MG INJ IV SCH (18:46)
[2020-09-19] MEDS: NA CHLORIDE 0.9% 1,000 ML IV SCH (18:46)
[2020-09-19 19:30] LABS: CKMB Creatine Kinase MB 1.1 ng/mL (0.3-3.6); Troponin I 0.11 ng/mL (0.0-0.045)
[2020-09-19] MEDS: DULERA 100/5 (MOMETASONE/FORMOTEROL) INHALER IH SCH (20:11)
[2020-09-19] MEDS: INSULIN GLARGINE 100 UNITS/ML SQ SCH (20:30)
[2020-09-19] MEDS: HYDROCODONE/APAP 5/325 MG TAB PO PRN (20:57)
[2020-09-19] MEDS ORDERED: MAGNESIUM SULFATE 1 gm IVPB 1 GM/100 ML BAG IV ONE (21:00)
[2020-09-19] MEDS ORDERED: ATORVASTATIN 40 MG TAB PO SCH (21:00)
[2020-09-20] MEDS: METHYLPREDNISOLONE 40 MG INJ IV SCH ×2 (00:23→07:40)
[2020-09-20] MEDS: TRAMADOL HCL 50 MG TAB PO PRN ×4 (00:39→23:44)
[2020-09-20 01:27] LABS: Urine Bilirubin NEGATIVE (NEG); Urine Blood NEGATIVE (NEG); Urine Color YELLOW; Urine Glucose 3+ (NEG); Urine Protein NEGATIVE (NEG); Urine Specific Gravity 1.025 (1.005-1.030); Urine Urobilinogen 0.2 mg/dL (0.2-1.0); Urine pH 5.5 (5.0-7.0)
[2020-09-20 01:42] LABS: Urine Appearance CLEAR; Urine Microscopic Reflex NO UMIC
[2020-09-20 03:51] LABS: Absolute Lymphocytes (CBC) 0.7 K/uL (0.7-4.9); Basophils % 0.2 % (0-1.3); Hematocrit 39.2 % (36.0-45.0); Lymphocytes % 12.3 % (15.3-44.8); MPV 7.9 fL (7.6-11.3)
[2020-09-20 04:24] LABS: CKMB Creatine Kinase MB 4.2 ng/mL (0.3-3.6)
[2020-09-20 04:25] LABS: Troponin I 0.66 ng/mL (0.0-0.045)
[2020-09-20 04:32] LABS: BUN Blood Urea Nitrogen 16 mg/dL (7-18); Bicarbonate 23 mmol/L (21-32); Glucose Level 196 mg/dL (74-106); HDL Cholesterol 54 mg/dL (40-60); LDL Cholesterol, Calculated 135 (<130); Magnesium 1.9 mg/dL (1.8-2.4); Potassium 4.4 mmol/L (3.5-5.1); Sodium Level 138 mmol/L (136-145)
[2020-09-20] MEDS: PANTOPRAZOLE 40MG TABLET PO SCH (05:42)
[2020-09-20] MEDS: INSULIN -REGULAR HUMAN 50 UNIT/0.5 ML ML SQ SCH ×4 (07:30→20:57)
[2020-09-20] MEDS: ASPIRIN EC 81 MG TAB PO SCH (07:40)
[2020-09-20] MEDS: NICOTINE 21 MG/PAT TD SCH (07:40)
[2020-09-20] MEDS: FOLIC ACID 1 MG TABLET PO SCH (07:40)
[2020-09-20] MEDS: NA CHLORIDE 0.9% 1,000 ML IV SCH ×2 (07:41→08:48)
[2020-09-20] MEDS: THIAMINE HCL 100 MG TABLET PO SCH (07:42)
[2020-09-20] MEDS: DULERA 100/5 (MOMETASONE/FORMOTEROL) INHALER IH SCH ×4 (07:43→20:55)
--- NOTE | 2020-09-20 08:23 | P.PN ---
Subjective Date of Service: 09/20/20 Primary Care Provider: EPHRAIM Armenta Chief Complaint: Syncope, chest pain Physical Examination - Vital Signs Temperature: 97.6 F Blood Pressure: 140/70 Pulse: 68 Respirations: 18 Pulse Ox (%): 96 - Studies Laboratory Data (last 24 hrs) 09/19/20 14:37: PT 9.9, INR 0.86 09/19/20 14:37: WBC 7.90, Hgb 13.7, Hct 39.8, Plt Count 233 09/19/20 14:37: Sodium 142, Potassium 4.1, BUN 21 H, Creatinine 0.53 L, Glucose 149 H, Magnesium 1.8, Total Bilirubin 0.2, AST 13 L, ALT 19, Alkaline Phosphatase 130 H Assessment & Plan Discharge Plan: Home Plan to discharge in: 48 Hours Physician Review Additional Text: Initial chief complaint: 80-year-old female presented with chest pain after fall now with fractures to the left 6th, 7th, and 8th ribs after syncope early this week. Now with elevated troponin suspect NSTEMI. Impression: Chest pain with elevated troponin suspect NSTEMI with history of CHF Syncopal episode recently with fall now with fractures to the left 6th, 7th, 8th rib Mild alveolitis with history of COPD Chest pain with history of CHF Mild dehydration Diabetes mellitus type 2 insulin dependent Carotid arterial disease with prior intervention: Tobacco abuse Plan: Chest pain with elevated troponin suspect NSTEMI with history of CHF: Overnite troponin remain elevated. Now up to 1.36. Will change Lovenox to 1 milligram/kilogram subcu twice daily. Low-dose metoprolol added with parameters in place. Lipitor increased to 80 mg daily. Continue aspirin, folic acid. Cardiology has been consulted. Await further recommendations. Echo pending. Physical therapy to assess ambulation today due to rib fractures. Encourage incentive spirometer. Will adjust medication for alveolitis/COPD. Will try to obtain more history from patient concerning her past medical problems. Will keep the patient NPO after midnight in anticipation for heart catheterization tomorrow. Anticipate discharge in the next 48 hr. I will turn the service over to the hospitalist team tomorrow. I will go over plan of care with him. Syncopal episode recently with fall now with fractures to the left 6th, 7th, 8th rib: CT head unremarkable. Will obtain carotid Doppler and MRI to further evaluate. Patient appears to be back to her baseline. Syncope may be related to cardiac disease. Will have physical therapy and occupation therapy evaluate patient. Patient appears better hydrated. Will decrease IV fluids. Will discontinue IV fluids if taking good oral intake. Patient likely would benefit with home health and physical therapy at discharge. Mild alveolitis with history of COPD: Will change IV Solu-Medrol to oral prednisone. Will also start Dulera. Continue COPD medication at discharge. Tobacco cessation addressed in detail. Mild dehydration: Will adjust IV fluids. Will Hep-Lock IV if taking good oral intake. Diabetes mellitus type 2 insulin dependent: Hemoglobin A1c 8.6. Patient on low-dose Lantus. Will continue to monitor closely. Will need to obtain home medications. Patient may be able to transition to oral medication at discharge. Carotid arterial disease with prior intervention: Patient reports intervention in the past for carotid her till disease. Will check carotid Doppler. Tobacco abuse: Will provide nicotine patch. Time Spent Managing Pts Care (In Minutes): 55
[2020-09-20] MEDS ORDERED: ENOXAPARIN 40 MG/0.4 ML SQ SCH (09:00)
[2020-09-20] MEDS ORDERED: D50W 25 GM/50 ML VIAL IV PRN (09:06)
[2020-09-20] MEDS: HYDROCODONE/APAP 5/325 MG TAB PO PRN ×2 (13:10→21:03)
--- NOTE | 2020-09-20 14:45 | RAD REPORT ---
EXAM DESCRIPTION: - CP - 09/20/2020 1:34 pm CLINICAL HISTORY: Syncope, Chest pain, NSTEMI COMPARISON: No comparisons TECHNIQUE: Real-time sonographic evaluation of bilateral carotid and vertebral systems was performed . Dewey scale and Doppler interrogation were performed with waveform tracing bilaterally. FINDINGS: Normal high resistance waveforms are noted in both external carotid arteries. The common c arotid arteries and internal carotid arteries show normal low resistance waveforms. Minimal plaquing changes are present in the right carotid bulb and proximal ICA. More prominent calci fied plaquing changes are present in the left carotid bulb region. Peak systolic and end diastolic ve locity values and the ICA/CCA ratios are in the non-hemodynamically significant range. Antegrade flow seen in both vertebral arteries. Velocity values and ratios were recorded and are retained in the patient's imaging records. IMPRESSION: Left greater than right carotid bulb region calcified plaquing changes. No hemodynamically significant stenosis on the right site. Visually there does appear to be significant luminal narrowing on the left. However, the velocity jacqui ues and the ICA/CCA ratio are in the non hemodynamically significant range.
[2020-09-20] MEDS: METOPROLOL TAR 25 MG TAB PO SCH (17:01)
[2020-09-20] MEDS: INSULIN GLARGINE 100 UNITS/ML SQ SCH (20:57)
[2020-09-20] MEDS: ENOXAPARIN 60 MG/0.6 ML SQ SCH (20:58)
[2020-09-20] MEDS: ATORVASTATIN 80 MG TAB PO SCH (20:59)
[2020-09-21] MEDS: HYDROCODONE/APAP 5/325 MG TAB PO PRN ×3 (04:11→23:54)
[2020-09-21] MEDS: NA CHLORIDE 0.9% 1,000 ML IV SCH (04:32)
[2020-09-21] MEDS: PANTOPRAZOLE 40MG TABLET PO SCH ×2 (06:30→07:08)
[2020-09-21] MEDS: METOPROLOL TAR 25 MG TAB PO SCH ×2 (07:08→17:48)
[2020-09-21] MEDS: INSULIN -REGULAR HUMAN 50 UNIT/0.5 ML ML SQ SCH ×4 (07:30→20:23)
[2020-09-21] MEDS: DULERA 100/5 (MOMETASONE/FORMOTEROL) INHALER IH SCH ×3 (07:44→20:10)
[2020-09-21] MEDS: NICOTINE 21 MG/PAT TD SCH (07:45)
[2020-09-21] MEDS: ENOXAPARIN 60 MG/0.6 ML SQ SCH ×2 (09:00→20:11)
[2020-09-21] MEDS ORDERED: predniSONE 10 MG TAB PO SCH (09:00)
[2020-09-21] MEDS: TRAMADOL HCL 50 MG TAB PO PRN ×2 (09:33→20:09)
[2020-09-21] MEDS: THIAMINE HCL 100 MG TABLET PO SCH (10:43)
[2020-09-21] MEDS: ASPIRIN EC 81 MG TAB PO SCH (10:43)
[2020-09-21] MEDS: FOLIC ACID 1 MG TABLET PO SCH (10:44)
--- NOTE | 2020-09-21 12:27 | PN ---
Date of Progress Note: 09/21/2020 Admitted on 09/20/2020 with non STEMI, fall, arm pain, shoulder pain. She was admitted to Dr. Currie. The patient had been told that she needs to have a heart catheterization, however, today the schedul e is full and we will postpone that till tomorrow morning. Past Medical History: Include hypertension, gastroesophageal reflux disease, and congestive heart fa ilure. Allergies: SHE HAS NO ALLERGIES. Medication: Presently include Lasix, Glucophage, Imdur, aspirin, metoprolol, insulin, and Lipitor. She has already had a head CT that was negative, a carotid that was negative, had a chest CT showing multiple rib fractures. Her troponin was 1.36. She has an echocardiogram pending. A catheterizatio n was planned for tomorrow. The case was discussed with Dr. Currie and Dr. Ford. DIMITRIOS/URSULA Voice ID: [id number] Report ID: [id number]
[2020-09-21] MEDS ORDERED: HEPA 1000U/500MLS 2,000 UNIT/1,000 ML BAG IV ONE (13:01)
[2020-09-21] MEDS ORDERED: LIDOCAINE 1% MPF 30 ML VIAL ONE (13:02)
[2020-09-21] MEDS ORDERED: NA CHLORIDE 0.9% 500 ML ONE (13:11)
[2020-09-21] MEDS ORDERED: MIDAZOLAM HCL 2 MG/2 ML INJ ONE (13:41)
[2020-09-21] MEDS ORDERED: FENTANYL CITR 100 MCG/2 ML ONE (13:42)
[2020-09-21] MEDS ORDERED: ATROPINE SULF 1 MG/10 ML SYR IV ONE (13:42)
[2020-09-21] MEDS ORDERED: HEPARIN 10,000 UNIT/10 ML VIAL IV ONE (13:42)
[2020-09-21] MEDS ORDERED: TICAGRELOR 90 MG TABLET PO ONE (14:17)
[2020-09-21] MEDS ORDERED: ONDANSETRON 4 MG/2 ML VIAL ONE (14:17)
[2020-09-21] MEDS ORDERED: HEPA 1000U/500MLS 1,000 UNIT/500 ML BAG IV ONE (14:29)
[2020-09-21] MEDS ORDERED: NITROGLYCERIN 0.4 MG/TAB SL PRN ×2 (15:09→19:08)
[2020-09-21] MEDS ORDERED: HYDROCODONE/APAP 5/325 MG TAB ONE (16:50)
[2020-09-21] MEDS ORDERED: HYDROCODONE/APAP 5/325 MG TAB PO ONE (17:00)
--- NOTE | 2020-09-21 18:42 | CON ---
Reason For Consultation: Elevated troponin. History Of Present Illness: This is an 80-year-old female status post fall presents with chest pain and back pain. She reported syncopal episode this past week. Does not have any recollection of the event. Within a few days, she started having left chest pain that radiates to the back with no nause a, vomiting, or diaphoresis. No shortness of breath. Past Medical History: Diabetes, COPD, hypertension, CHF, coronary artery disease, carotid disease, s tatus post cardiac bypass surgery. Medications: Refer to consultation sheet for detailed list. Allergies: NO KNOWN DRUG ALLERGIES. Family History: No mention of coronary artery disease or cancers. Social History: History of smoking. Does not drink or use any drugs. Review of Systems: All systems reviewed and they were negative except for mentioned in the HPI. Physical Examination: Vital Signs: Temperature is 98.2, pulse 73, breathing 18, blood pressure 120/64, saturating 98%. GENERAL: Pleasant elderly female, in no apparent distress. HEENT and Neck: Pupils are equal, reactive to light. Intact eye movements. No JVD. No cervical ly mphadenopathy. Neck is supple. Lungs: Clear to auscultation bilaterally. No rhonchi, rales, or crackles. No accessory muscle use. Heart: Regular rate and rhythm. No extra sounds. Abdomen: Soft, nontender. Bowel sounds positive. No organomegaly. No rigidity or rebound. Extremities: No clubbing, cyanosis. Intact pulses. Skin: No rash. Neurologic: Alert, awake, oriented x3. No acute focal deficits appreciated. Investigations: CT scan of the brain is negative for acute abnormality. Troponin peaked at 1.36, cr eatinine 0.46. Assessment And Recommendations: Non-ST elevation myocardial infarction. Start on Lovenox 1 mg/kg [place]ca bcu q.12 hours, aspirin daily, and trend troponin. Obtain echocardiogram and plan for coronary angio gram on Monday. Report for significant chest pain. SR/MODL Voice ID: [id number] Report ID: [id number]
[2020-09-21] MEDS ORDERED: ACETAMINOPHEN 325 MG TABLET PO PRN (19:04)
[2020-09-21] MEDS ORDERED: NA CHLORIDE 0.9% 1,000 ML IV SCH (20:00)
--- NOTE | 2020-09-21 20:09 | OP ---
Date of Procedure: 09/21/2020 Surgeon: ABEL MONAE Procedure Performed: 1.Selective coronary angiogram with bypass graft study. 2.PCI of severe mid left circumflex disease using 3.0 x 20 mm Synergy drug-eluting stent and postdil ated using 3.25 x 50 mm NC balloon. 3.PCI of severe distal left circumflex stenosis, which is a culprit 95% stenosis, used 2.5 x 24 mm S ynergy drug-eluting stent, postdilated proximal portion to 3.25 using 3.5 x 50 mm NC balloon. Access: Right femoral artery 6-Guatemalan closed with 6-Guatemalan Angio-Seal. Complications: None. Bleeding: Less than 20 mL. Indication: Non-ST elevation myocardial infarction. Description Of Procedure: After risks, benefits, and alternatives were explained, patient agreed to proceed and signed informed consent. The patient was brought into the cardiac catheterization labora tory, prepped and draped in usual sterile fashion. We used fentanyl and Versed in incremental doses to achieve adequate moderate sedation. Then accessed the right femoral artery under fluoroscopy and ultrasound guidance using micropuncture kit and placed a 6-Guatemalan Ladson sheath and took a 6-Guatemalan JL4 catheter into the aortic root, engaged left main, took standard views, took 6-Guatemalan JR4 cathete r into the aortic root, engaged the right coronary artery, took standard views and engaged the MACKAY a nd took standard views, also tried to engage the SVG that were occluded. Intervention Details: We gave systemic heparin to assure ACT level above 250 throughout the procedur e and then we took a 6-Guatemalan EBU 3.5 into the aortic root over a J-wire, engaged left main, took valerie rt run-through wire across the stenotic lesions of the left circumflex after predilation and placed a 2.5 x 24 mm Synergy drug-eluting stent into the distal lesion, which was the culprit, postdilated pr oximal portion using 3.25 x 50 mm NC balloon, then used a 3.0 x 20 mm Synergy drug-eluting stent to c over the proximal diversion lesion overlapping the other stent and then used a 3.25 x 50 mm balloon t o the overlap and then postdilated the proximal portion of the stent and removed the wire and the mel de and then the catheter, and the sheath was removed and placed Angio-Seal for closure with good hemo stasis. Findings: 1.Left main enlarged and normal. 2.LAD proximally totally occluded with patent MACKAY. 3.Left circumflex has mid disease at 90% and then mid to distal that is 95% status post successful P CI as above, and then it is a dominant vessel, has multiple branches with diffuse disease. 4.RCA is very small nondominant with ostial 90% and then diffuse disease. 5.Patent MACKAY to LAD with distal LAD diffuse disease. 6.SVG grafts are occluded. Conclusion: 1.Significant coronary artery disease as above, status post PCI of mid and distal left circumflex montes de oca ccessfully. 2.Patent MACKAY to LAD with occluded other SVG grafts. Plan: The patient was loaded with Brilinta 180, continue 90 mg q.12 hours, aspirin 81 mg daily and h igh-dose statin. SR/MODL Voice ID: [id number] Report ID: [id number]
[2020-09-21] MEDS: INSULIN GLARGINE 100 UNITS/ML SQ SCH (20:20)
[2020-09-21] MEDS: ATORVASTATIN 80 MG TAB PO SCH (20:32)
[2020-09-21] MEDS ORDERED: TICAGRELOR 90 MG TABLET PO SCH (21:00)
[2020-09-21 22:19] VITALS: O2SAT 98
[2020-09-22] MEDS: NA CHLORIDE 0.9% 1,000 ML IV SCH (02:36)
[2020-09-22 04:50] VITALS: BP 121/60; TEMP 97.5
[2020-09-22] MEDS: PANTOPRAZOLE 40MG TABLET PO SCH ×2 (05:29→06:30)
[2020-09-22] MEDS: METOPROLOL TAR 25 MG TAB PO SCH ×2 (05:30→06:00)
[2020-09-22] MEDS ORDERED: ASPIRIN EC 81 MG TAB PO SCH (09:00)
--- NOTE | 2020-09-22 16:23 | P.PN ---
Subjective Date of Service: 09/21/20 Subjective: No new changes, No C/O voiced, Improving Review of Systems 10-point ROS is otherwise unremarkable Physical Examination - Vital Signs Temperature: 97.5 F Blood Pressure: 121/60 Pulse: 69 Respirations: 16 Pulse Ox (%): 98 - Physical Exam General: Alert, In no apparent distress HEENT: Atraumatic, PERRLA, EOMI Neck: Supple, JVD not distended Respiratory: Clear to auscultation bilaterally, Normal air movement Cardiovascular: Regular rate/rhythm, Normal S1 S2 Gastrointestinal: Normal bowel sounds, No tenderness Musculoskeletal: No tenderness Integumentary: No rashes Neurological: Normal speech, Normal tone, Normal affect Lymphatics: No axilla or inguinal lymphadenopathy - Studies Medications List Reviewed: Yes Assessment & Plan - Problems (Diagnosis) (1) NSTEMI (non-ST elevated myocardial infarction) Status: Acute - Plan Plan: 1. Patient status post cardiac catheterization with stent placement x2. Continue with anti-platelet therapy 2. Continue with cardiac meds including statin and beta-juanita therapy 3. GI and DVT prophylaxis Discharge Plan: Home Plan to discharge in: 48 Hours - Advance Directives Does patient have a Living Will: No Does patient have a Durable POA for Healthcare: No - Code Status/Comfort Care Code Status Assessed: Yes Code Status: Full Code Critical Care: No Time Spent Managing PTS Care (In Minutes): 35
--- NOTE | 2020-09-22 23:43 | PN ---
Date of Progress Note: 09/22/2020 History Of Present Illness: Ms. Shannon is an 80-year-old woman. She was taken to the cathead operator by Dr. Barahona on 09/21/2020 because of a non-STEMI. She was found to have an LAD that is approximately totally occluded with a patent MACKAY. Her left circumflex had mid 90% stenosis and a 95% stenosis, st atus post PCI. She has a nondominant RCA. She had a vein grafts that were occluded otherwise. Over night, she did well. Her groin site is intact. Physical Examination: Vital Signs: Stable. Afebrile. Chest: Clear. Extremities: Distal extremities are intact with good pulses. Impression And Plan: Coronary artery disease, status post bypass surgery; patent MACKAY graft, status post stent of the proximal and mid circumflex, doing well. She will go home on aspirin, Lipitor, ins ulin, metoprolol, Plavix. She will follow up with us in the next 2 weeks. DIMITRIOS/URSULA Voice ID: [id number] Report ID: [id number]
--- NOTE | 2020-09-23 00:01 | EKG ---
Test Date: 2020-09-21 Test Time: 15:15:00 [employer] Space Salesperson: DENIS MEASUREMENT RESULTS: Intervals: Rate: 61 AK: 164 QRSD: 86 QT: 436 QTc: 438 [place]: P: AK: 164 QRS: 182 T: 160 INTERPRETIVE STATEMENTS: Sinus rhythm with premature atrial complexes Right superior axis deviation Nonspecific ST and T wave abnormality Abnormal ECG No previous ECG available for comparison Electronically Signed On 09-22-20 23:58:40 JOINT SEALER by Jhon Forrester
--- NOTE | 2020-09-24 05:43 | EKG ---
Test Date: 2020-09-21 Test Time: 16:17:16 Anode Builder: TG MEASUREMENT RESULTS: Intervals: Rate: 62 CA: 154 QRSD: 86 QT: 424 QTc: 430 [place]: P: -21 CA: 154 QRS: 4 T: 62 INTERPRETIVE STATEMENTS: Sinus rhythm with premature atrial complexes Cannot rule out Anterior infarct, age undetermined Abnormal ECG Compared to ECG 09/21/2020 15:15:00 Myocardial infarct finding now present Right superior axis no longer present ST (T wave) deviation no longer present Electronically Signed On 09-24-20 05:36:26 CUTTER OPERATOR TILE by Jhon Forrester
--- NOTE | 2020-09-24 05:44 | EKG ---
Test Date: 2020-09-21 Test Time: 16:16:45 Director Of Child Welfare Services: TG MEASUREMENT RESULTS: Intervals: Rate: 54 TN: 160 QRSD: 80 QT: 410 QTc: 388 [place]: P: 54 TN: 160 QRS: 4 T: 67 INTERPRETIVE STATEMENTS: Sinus bradycardia with premature atrial complexes Cannot rule out Anterior infarct, age undetermined Abnormal ECG Compared to ECG 09/21/2020 15:15:00 Myocardial infarct finding now present Sinus rhythm no longer present Right superior axis no longer present ST (T wave) deviation no longer present Electronically Signed On 09-24-20 05:36:27 WIND FIELD MANAGER by Jhon Forrester
--- NOTE | 2020-10-08 15:42 | P.DS ---
Discharge Date: 09/22/20 Primary Care Provider: EPHRAIM Armenta Disposition: DC HOME/HOME HEALTH CARE Discharge Condition: GOOD Reason for Admission: Syncope, chest pain Consultations: Cardiology - Problems (1) NSTEMI (non-ST elevated myocardial infarction) Status: Acute Brief History of Present Illness: 80-year-old female presented to the emergency room with chest pain, back pain, and recent syncope. Patient reports that this past week she had a syncopal episode. She does not recall the whole event but she was apparently walking from the dining room to the bathroom. Then she found herself on the ground. She did know how for how long. She knew she fell. The subsequent days she start to have pain to the left chest wall. It would radiate to the back. Over the past several days she has been having more chest pain. Chest pain now to the center of the chest radiating to the left arm and back. She denies any fever, chills. No sick contacts noted. She came to the ER for further evaluation. In the ER patient was evaluated. Initial vital sounds showed low blood pressure. Patient appeared dehydrated. CBC unremarkable. Sodium 142, potassium 4.2. BUN of 21, creatinine 0.53 with a GFR of greater than 90. Glucose 149. Troponin 0.09. CT head unremarkable. CT scan showed mild alveolitis. Mildly to moderately displaced fractures involving the 6th lateral rib, nondisplaced fracture involving the 7th lift rib cage, non displaced fracture of the 8th a left posterior rib noted. No pulmonary contusion. No mediastinal hematoma. No pneumothorax. Patient was admitted for further evaluation and treatment. When I saw the patient ER, patient was reporting pain. Patient was not in respiratory failure or distress. Patient reports history of hypertension, GERD, diabetes, COPD. She reports taking Lantus and isosorbide. She does not recall her other medications. Patient is a heavy smoker. Hospital Course: Patient a cardiac catheterization, and patient required stent x2. Patient was given anti-platelet therapy and statin therapy. Patient also was given cardiac medications. Patient is clinically doing well with no new complaints. At this time, patient is stable for discharge. Patient will need close outpatient follow with Cardiology. Vital Signs/Physical Exam: Temp Pulse Resp BP Pulse Ox 97.5 F 69 16 121/60 98 10/08/20 15:38 10/08/20 15:38 10/08/20 15:38 10/08/20 15:38 10/08/20 15:38 General: Alert, In no apparent distress, Oriented x3 Laboratory Data at Discharge: WBC 5.90 K/uL (4.3-10.9) D 09/20/20 03:32 Hgb 13.1 g/dL (12.0-15.0) 09/20/20 03:32 Hct 39.2 % (36.0-45.0) 09/20/20 03:32 Plt Count 242 K/uL (152-406) 09/20/20 03:32 PT 9.9 SECONDS (9.5-12.5) 09/19/20 14:37 INR 0.86 09/19/20 14:37 Sodium 138 mmol/L (136-145) 09/20/20 03:32 Potassium 4.4 mmol/L (3.5-5.1) 09/20/20 03:32 BUN 16 mg/dL (7-18) 09/20/20 03:32 Creatinine 0.46 mg/dL (0.55-1.3) L 09/20/20 03:32 Glucose 196 mg/dL (74-106) H 09/20/20 03:32 Magnesium 1.9 mg/dL (1.8-2.4) 09/20/20 03:32 Total Bilirubin 0.2 mg/dL (0.2-1.0) 09/19/20 14:37 AST 13 U/L (15-37) L 09/19/20 14:37 ALT 19 U/L (12-78) 09/19/20 14:37 Alkaline Phosphatase 130 U/L (45-117) H 09/19/20 14:37 Troponin I 1.36 ng/mL (0.0-0.045) H* 09/20/20 07:16 Triglycerides 116 mg/dL (<150) 09/20/20 03:32 Cholesterol 212 mg/dL (<200) H 09/20/20 03:32 HDL Cholesterol 54 mg/dL (40-60) 09/20/20 03:32 Cholesterol/HDL Ratio 3.93 09/20/20 03:32 Home Medications: Cholecalciferol (Vitamin D3) [Vitamin D3] 50 mcg PO DAILY 09/20/20 Cyanocobalamin (Vitamin B-12) [Vitamin B12] 500 mcg PO DAILY 09/20/20 Furosemide [Lasix*] 1 tab PO DAILY 09/20/20 Gabapentin [Neurontin] 1 tab PO TID 09/20/20 Hydrocodone Bit/Acetaminophen [Hydrocodon-Acetaminoph 7.5-325] 1 tab PO BID 09/20/20 Isosorbide Mononitrate [Isosorbide Mononitrate ER] 1 tab PO DAILY 09/20/20 Metformin HCl [Glucophage*] 1 tab PO BID 09/20/20 Metoprolol Tartrate [Lopressor] 1 tab PO DAILY 09/20/20 Ondansetron HCl [Zofran] 1 tab PO Q8H PRN 09/20/20 Potassium Chloride [Klor-Con M10] 1 tab PO SEECOM 09/20/20 Vitamin A 2,400 mcg PO DAILY 09/20/20 Aspirin [Ecotrin 81 MG] 81 mg PO DAILY #30 tablet. 09/22/20 Atorvastatin Calcium [Lipitor] 80 mg PO BEDTIME #30 tab 09/22/20 Clopidogrel Bisulfate [Plavix] 75 mg PO DAILY #30 tablet 09/22/20 Metoprolol Tartrate [Lopressor*] 25 mg PO BID 6AM 6PM #60 tab 09/22/20 Mometasone/Formoterol [Dulera 100 Mcg/5 Mcg Inhaler] 2 puff IH BID #1 inhaler 09/22/20 Nicotine [Nicoderm*] 21 mg TD DAILY #30 patch.td24 09/22/20 Nitroglycerin [Nitrostat*] 0.4 mg SL UD PRN #100 tab 09/22/20 Pantoprazole [Protonix Tab*] 40 mg PO DAILYAC #30 tab 09/22/20 Thiamine HCl [Vitamin B-1*] 100 mg PO DAILY #30 tablet 09/22/20 glipiZIDE [Glucotrol*] 5 mg PO BID #60 tab 09/22/20 predniSONE [Deltasone*] 10 mg PO DAILY #14 tab 09/22/20 traMADol HCL [Ultram*] 50 mg PO TIDP PRN #30 tab 09/22/20 New Medications: predniSONE [Deltasone*] 10 mg PO DAILY #14 tab Mometasone/Formoterol [Dulera 100 Mcg/5 Mcg Inhaler] 2 puff IH BID #1 inhaler Aspirin [Ecotrin 81 MG] 81 mg PO DAILY #30 tablet. glipiZIDE [Glucotrol*] 5 mg PO BID #60 tab Atorvastatin Calcium [Lipitor] 80 mg PO BEDTIME #30 tab Metoprolol Tartrate [Lopressor*] 25 mg PO BID 6AM 6PM #60 tab Nicotine [Nicoderm*] 21 mg TD DAILY #30 patch.td24 Nitroglycerin [Nitrostat*] 0.4 mg SL UD PRN #100 tab PRN Reason: Pain Scale 2-4 (Mild) Clopidogrel Bisulfate [Plavix] 75 mg PO DAILY #30 tablet Pantoprazole [Protonix Tab*] 40 mg PO DAILYAC #30 tab traMADol HCL [Ultram*] 50 mg PO TIDP PRN #30 tab PRN Reason: Pain Scale 2-4 (Mild) Thiamine HCl [Vitamin B-1*] 100 mg PO DAILY #30 tablet Physician Discharge Instructions: OK TO DC IV AND DC HOME FOLLOW-UP WITH PRIMARY CARE PROVIDER IN 1-2 WEEKS FOLLOW-UP WITH CARDIOLOGY IN 1-2 WEEKS RETURN TO THE ER IF symptoms worsen CALL or TEXT DR. OLMSTEAD AT [phone] IF ANY QUESTIONS REGARDING HOSPITAL STAY. PLEASE CALL THE FLOOR AT [phone] IF ANY MEDICATION OR NURSING QUESTIONS. Diet: AHA Activity: Fall precautions Followup: Unknown,U [Primary Care Provider] - Time spent managing pt's care (in minutes): 35
== END 2020-09-22 09:14 | disposition home health service (06) | DRG 247 ==
LOC: ER 13:08 → ERHOLD 15:40 → 4TH 17:26 → OBSVTOIN 09-20 12:45
PROVIDERS: ADMIT Family Medicine; ATTEND Hospitalist
PROC: 027035Z Dilation of Coronary Artery, One Artery with Two Drug-eluting Intraluminal Devices, Percutaneous Approach (ICD-10-PCS; principal; 2020-09-21)
PROC: 4A023N7 Measurement of Cardiac Sampling and Pressure, Left Heart, Percutaneous Approach (ICD-10-PCS; 2020-09-21)
PROC: B2111ZZ Fluoroscopy of Multiple Coronary Arteries using Low Osmolar Contrast (ICD-10-PCS; 2020-09-21)
DX: I21.4 Non-ST elevation (NSTEMI) myocardial infarction (principal); S22.42XA Multiple fractures of ribs, left side, initial encounter for closed fracture; I10 Essential (primary) hypertension; K21.9 Gastro-esophageal reflux disease without esophagitis; F17.210 Nicotine dependence, cigarettes, uncomplicated; I25.10 Atherosclerotic heart disease of native coronary artery without angina pectoris; E11.9 Type 2 diabetes mellitus without complications; J44.9 Chronic obstructive pulmonary disease, unspecified; E86.0 Dehydration; W18.30XA Fall on same level, unspecified, initial encounter; Y92.012 Bathroom of single-family (private) house as the place of occurrence of the external cause; Z79.4 Long term (current) use of insulin; Z79.899 Other long term (current) drug therapy; Z60.2 Problems related to living alone; Z20.822 Contact with and (suspected) exposure to COVID-19
CPT/HCPCS: 36415; 70450; 71250; 80048; 80061; 80076; 81003; 82550; 82553; 82947; 83036; 83735; 83880; 84439; 84443; 84484; 85025; 85347; 85610; 93005; 93454; 93880; 94010; 96374; 96375; 97161; 99285; C1725; C1760; C1893; C9600; C9601; G0378; J1644; J1650; J1815; J2250; J2405; J2920; J3010; J3475; J7030; J7040; J7512; J7606; U0003